=== PATIENT | male | born 1930 | race Caucasian/White ===

== ENCOUNTER 2016-09-30 15:21 | Inpatient (IN) | payer OTHER, MEDICARE ==
[2016-09-30] MEDS ORDERED: NS 500 ML IV ONE (15:22)
--- NOTE | 2016-09-30 15:23 | EDPHY ---
H & P HPI/ROS: HPI CHIEF COMPLAINT: Bradycardia HISTORY OF PRESENT ILLNESS: This patient very pleasant 78-year-old male significant past medical history for coronary artery disease and hypertension, hyperlipidemia, myasthenia gravis, with dysphagia and has a PEG tube, history of AFib on Coumadin, he presents to the emergency room after he was seen in cardiology clinic up stairs by Dr. Ricci and found to be bradycardic in the 30s to 40s. The patient does complain of fatigue, and intermittent generalized weakness. He has never had a syncopal episode he denies chest pain or shortness of breath. Does get dyspnea on exertion with great exertion. He presents emergency room from up stairs in cardiology clinic asymptomatic, he denies any chest pain, denies any shortness of breath. It is noted his heart rates in the 30s to 40s. Patient went for routine follow-up appointment with Cardiology. Dr. Ricci tells me his HR usually runs in the 50s. It is noted this patient is on metoprolol 12.5 mg twice daily. Past Medical History: Coronary artery disease with 3 stents, hypertension, hyperlipidemia, myasthenia gravis with dysphagia, requiring PEG tube, history of diabetes, AFib Past Surgical History: PEG tube Social History: Denies daily use of drugs alcohol tobacco products Family History: Noncontributory ROS REVIEW OF SYSTEMS: A comprehensive 10 point review of systems is otherwise negative aside from elements mentioned in the history of present illness. Exam Constitutional appears well nontoxic, triage nursing summary reviewed, vital signs reviewed, awake/alert. Eyes normal conjunctivae and sclera, EOMI, PERRLA. HENT normal inspection, atraumatic, moist mucus membranes, no epistaxis, neck supple/ no meningismus, no raccoon eyes. Respiratory clear to auscultation bilaterally, normal breath sounds, no respiratory distress, no wheezing. Cardiovascular bradycardia, regular rhythm, no murmur, no edema, distal pulses normal. Gastrointestinal soft, non-tender, no rebound, no guarding, normal bowel sounds, no distension, no pulsatile mass. Genitourinary no CVA tenderness. Musculoskeletal no midline vertebral tenderness, full range of motion, no calf swelling, no tenderness of extremities, no meningismus, good pulses, neurovascularly intact. Skin pink, warm, & dry, no rash, skin atraumatic. Neurologic awake, alert and oriented x 3, AAOx3, moves all 4 extremities equally, motor intact, sensory intact, CN II-XII intact, normal cerebellar, normal vision, normal speech. Psychiatric normal mood/affect. Heme/Lymph/Immune no lymphadenopathy. Differential Diagnosis: Includes but is not limited to in a particular order, symptomatic bradycardia, dehydration, electrolyte disturbance, bradycardia induced by beta-lolita, underlying cardiac conduction delay with bradycardia Medical Decision Making: Plan for this patient full threat monitoring analyst, EKG, IV establishment, IV fluid bolus, check electrolytes, check troponin, chest x-ray one view. Patient need to be admitted to the hospital overt [facility]. Patient need to be admitted for bradycardia. Will need pacemaker. No indication for emergent pacing at this time no indication for transcutaneous pacing or transvenous pacing here in the emergency room. Patient asymptomatic. Without any complaints. Re-evaluation: EKG interpretation by me on record in My [employer] system. Impression time of EKG , this is AFib rate of 47. No acute ischemic changes. I do not appreciate P waves. 1555: I spoke with the daughter who is unclear if he is actually taking beta- lolita. The daughter thinks that he may not be on metoprolol twice daily 12.5 mg. will need to confirm with his pharmacy. Will hold beta-lolita just in case. 1556: I spoke with Dr. Hernandez who agrees to admit this patient to PCU. Patient be transferred over to [facility] inpatient. Patient agrees for transfer. Patient be transferred by ambulance transport due to bradycardia. Source: Patient, Family - Medical/Surgical History Hx Asthma: Yes Hx Chronic Respiratory Disease: Yes Hx Diabetes: Yes Hx Cardiac Disease: Yes Hx Renal Disease: Yes Hx Cirrhosis: No Hx Alcoholism: No Hx HIV/AIDS: No Hx Splenectomy or Spleen Trauma: No Other PMH: HYPOTHYROIDISM, HYPERTENSION, HYPERCHOLESTREMIA. DIABETES TYPE 2 resolved after quit ETOH. 3 STENTS. dysphagia . peg tube - Social History Smoking Status: Never smoked Constitutional: Initial Vital Signs Temperature (C) 36.6 C 09/30/16 15:26 Heart Rate 46 L 09/30/16 15:26 Respiratory Rate 16 09/30/16 15:26 Blood Pressure 116/80 09/30/16 15:26 O2 Sat (%) 96 09/30/16 15:26 O2 Delivery Mode Room Air Allergies/Adverse Reactions: No Allergies Allergy (Unknown, Verified 09/30/16 15:31) Home Medications: Medication Instructions Recorded Albuterol Sulfate [Proair Hfa] 1 - 2 gm IH Q4-6PRN PRN 09/30/16 Cyanocobalamin [Vitamin B12 (*)] 1,000 mcg PO DAILY 09/30/16 Famotidine [Pepcid 20 MG (*)] 20 mg PO BID 09/30/16 Ferrous Sulfate [Ferrous Sulf 325 325 mg PO BID 09/30/16 MG (*)] Fluticasone Nasal [Flonase Nasal 1 sprays NASAL DAILY PRN 09/30/16 [place] (RX)] Fluticasone/Salmeter 250/50Mcg 1 puffs IH BID 09/30/16 [Advair 250/50 (*)] Ipratropium [Atrovent Hfa (*)] 1 puffs IH DAILY 09/30/16 Levothyroxine Sodium 100 mcg PO DAILY 09/30/16 [Levothyroxine Sodium] Memantine HCl [Memantine HCl] 10 mg PO BID 09/30/16 Mirtazapine [Remeron] 15 mg PO HS 09/30/16 Pyridostigmine Roscoe 60 mg PO QID 09/30/16 [Pyridostigmine [place]] Simvastatin 10 mg PO HS 09/30/16 Warfarin Sodium [Coumadin 5MG (*)] 7.5 mg PO DAILY 09/30/16 guaiFENesin [Guaifenesin] 400 mg PO BID PRN 09/30/16 Medical Decision Making - Data Points Laboratory Results: Laboratory Results 09/30/16 15:28 09/30/16 15:28 Medications Given: Discontinued Medications Bacitracin (Bacitracin 1000 Ml Irrigation) 50,000 units IRR ONCALL ONE Stop: 10/01/16 07:47 Last Admin: 10/01/16 17:44 Dose: Not Given Diazepam (Valium) 5 mg PO ONCALL ONE Stop: 10/01/16 07:47 Last Admin: 10/01/16 17:44 Dose: Not Given Diphenhydramine HCl (Benadryl) 25 mg PO ONCALL ONE Stop: 10/01/16 07:47 Last Admin: 10/01/16 17:44 Dose: Not Given Furosemide (Lasix Injection) 40 mg IVP ONCE ONE Stop: 10/02/16 09:55 Last Admin: 10/02/16 11:26 Dose: 40 mg Sodium Chloride (Ns) 500 mls @ 1,000 mls/hr IV ONCE ONE PRN Reason: Protocol Stop: 09/30/16 15:51 Last Admin: 09/30/16 15:40 Dose: 500 mls Sodium Chloride (Ns) 1,000 mls @ 50 mls/hr IV CONT LISBETH Stop: 03/29/17 20:59 Last Admin: 10/01/16 18:13 Dose: 1,000 mls Cefazolin Sodium/Dextrose (Ancef 2 Gm (Premix)) 100 mls @ 200 mls/hr IV ONCALL ONE PRN Reason: Protocol Stop: 10/01/16 08:15 Last Admin: 10/01/16 17:44 Dose: Not Given Cefazolin Sodium/Dextrose (Ancef 1 Gm (Premix)) 50 mls @ 200 mls/hr IV Q8HRS LISBETH PRN Reason: Protocol Stop: 10/02/16 06:14 Last Admin: 10/02/16 05:01 Dose: 50 mls Mirtazapine (Remeron) 15 mg PO HS LISBETH Stop: 03/29/17 20:59 Last Admin: 09/30/16 21:37 Dose: Not Given Pravastatin Sodium (Pravachol) 20 mg PO HS LISBETH Stop: 03/29/17 20:59 Last Admin: 09/30/16 21:37 Dose: Not Given Pyridostigmine Roscoe (Mestinon) 60 mg PO QID LISBETH Stop: 03/29/17 20:59 Last Admin: 09/30/16 21:54 Dose: Not Given Departure - Departure Disposition: [facility] Acute Clinical Impression: Symptomatic bradycardia Condition: Fair
--- NOTE | 2016-09-30 15:32 | CPEKG ---
Heart Rate: 47 RR Interval: 1277 QRSD Interval: 94 QT Interval: 500 QTC Interval: 442 QRS Williamson: -29 T Wave Williamson: 26 EKG Severity - ABNORMAL ECG - EKG Impression: ATRIAL FIBRILLATION EKG Impression: BORDERLINE LEFT AXIS DEVIATION Electronically Signed By: Yuval Zamora 01-Oct-2016 16:52:54
[2016-09-30 15:36] LABS: % IMMATURE GRANULYOCYTES 0.7 % (0.0-1.1); ABSOLUTE IMMATURE GRANULOCYTES 0.02 10^3/uL (0.00-0.10); ADD DIFF? NO; ADD MORPH? NO; ADD SCAN? NO; ATYPICAL LYMPHOCYTE FLAG 0 (0-99); FRAGMENT RBC FLAG 0 (0-99); HEMATOCRIT 40.7 % (40.0-51.0); LEFT SHIFT FLG 0 (0-99); LIPEMIA HEMOLYSIS FLAG 80 (0-99); MEAN CELL HEMOGLOBIN 29.5 pg (27.9-34.1); MEAN CELL HEMOGLOBIN CONCENTR. 31.9 g/dL (32.4-36.7); MEAN CELL VOLUME 92.3 fL (81.5-99.8); MEAN PLATELET VOLUME 12.4 fL (8.7-11.7); PLATELET CLUMPS FLAG 10 (0-99); PLATELET COUNT 86 10^3/uL (150-400); RED BLOOD CELL COUNT 4.41 10^6/uL (4.40-6.38); RED CELL DISTRIBUTION WIDTH 14.6 % (11.5-15.2)
[2016-09-30 15:49] LABS: INR 2.05 (0.83-1.16); PROTIME(PATIENT) 22.9 SEC (12.0-15.0)
[2016-09-30 15:50] LABS: APTT 37.3 SEC (23.0-38.0)
[2016-09-30 15:53] LABS: ANION GAP 9 mEq/L (8-16); CALCIUM 8.8 mg/dL (8.5-10.4); CARBON DIOXIDE 27 mEq/l (22-31); CHLORIDE 108 mEq/L (97-110); CREATININE 0.9 mg/dL (0.7-1.3); GLOMERULAR FILTRATION RATE > 60; GLUCOSE 100 mg/dL (70-100); MAGNESIUM 2.2 mg/dL (1.6-2.3); POTASSIUM 4.3 mEq/L (3.5-5.2); SODIUM 144 mEq/L (134-144)
[2016-09-30 16:07] LABS: CREATINE KINASE-MB FRACTION 2.98 ng/mL (0-4.55); TROPONIN I < 0.012 ng/mL (0-0.034)
--- NOTE | 2016-09-30 17:28 | PDGENHP ---
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 He has complained of fatigue and weakness over past several days. Denies CP, SOB, dizziness, or syncope. No fevers/chills or respiratory symptoms. He has no complaints upon arrival to the floor, stating "I'm here to get a pacemaker". The ED physician reported that his daughter stated he may still be taking Metoprolol and we're trying to get this clarified. He is admitted to the PCU for further management. History Information - Allergies/Home Medication List Allergies/Adverse Reactions: No Allergies Allergy (Unknown, Verified 09/30/16 15:31) Home Medications: Albuterol Sulfate [Proair Hfa] 1 - 2 gm IH Q4-6PRN PRN 09/30/16 [Last Taken ] Cyanocobalamin [Vitamin B12 (*)] 1,000 mcg PO DAILY 09/30/16 [Last Taken ] Famotidine [Pepcid 20 MG (*)] 20 mg PO BID 09/30/16 [Last Taken 09/29/16] Ferrous Sulfate [Ferrous Sulf 325 MG (*)] 325 mg PO BID 09/30/16 [Last Taken ] Fluticasone Nasal [Flonase Nasal [place] (RX)] 1 sprays NASAL DAILY PRN 09/30/16 [ Last Taken 09/29/16] Fluticasone/Salmeter 250/50Mcg [Advair 250/50 (*)] 1 puffs IH BID 09/30/16 [ Last Taken 09/29/16] Ipratropium [Atrovent Hfa (*)] 1 puffs IH DAILY 09/30/16 [Last Taken 09/29/16] Levothyroxine Sodium [Levothyroxine Sodium] 100 mcg PO DAILY 09/30/16 [Last Taken 09/29/16] Memantine HCl [Memantine HCl] 10 mg PO BID 09/30/16 [Last Taken 09/29/16] Mirtazapine [Remeron] 15 mg PO HS 09/30/16 [Last Taken 09/29/16] Pyridostigmine [place] [Pyridostigmine [place]] 60 mg PO QID 09/30/16 [Last Taken 09/29/16] Simvastatin 10 mg PO HS 09/30/16 [Last Taken 09/29/16] Warfarin Sodium [Coumadin 5MG (*)] 7.5 mg PO DAILY 09/30/16 [Last Taken 09/29/16 ] guaiFENesin [Guaifenesin] 400 mg PO BID PRN 09/30/16 [Last Taken 09/29/16] I have personally reviewed and updated: family history, medical history, social history, surgical history - Past Medical History coronary artery disease, hypertension, hyperlipidemia Additional medical history: h/o coronary stents, last LAD in 2013, dementia, DM type 2, atrial fibrillation, chronic anti-coagulation, h/o upper GIB due to gastric AVM's 09/2015, myasthenia gravis, peg tube - Surgical History Reports: appendectomy, coronary stent Additional surgical history: Peg tube 2013, inguinal hernia repair 2013 - Family History Additional family history: daughter with MS, sibling from alcoholism, mother with brain cancer, father with black lung - Social History Smoking Status: Never smoked Alcohol Use: None Drug Use: None Additional social history: Lives independently with . Daughter helps. Review of Systems ROS: 10pt was reviewed & negative except for what was stated in HPI & below Physical Exam Temp Pulse Resp BP Pulse Ox 36.6 C 46 L 16 116/80 98 09/30/16 15:26 09/30/16 15:26 09/30/16 15:26 09/30/16 15:26 09/30/16 16:08 O2 (L/minute) 1 Constitutional: no apparent distress Eyes: PERRL Ears, Nose, Mouth, Throat: moist mucous membranes Cardiovascular: regular rate and rhythym Respiratory: no respiratory distress, clear to auscultation Gastrointestinal: normoactive bowel sounds, soft, non-tender abdomen Skin: warm Musculoskeletal: full muscle strength Psychiatric: poor memory Lab Data & Imaging Review 09/30/16 15:28 09/30/16 15:28 WBC 2.71 10^3/uL (3.80-9.50) L 09/30/16 15:28 RBC 4.41 10^6/uL (4.40-6.38) 09/30/16 15:28 Hgb 13.0 g/dL (13.7-17.5) L 09/30/16 Hct 40.7 % (40.0-51.0) 09/30/16 MCV 92.3 fL (81.5-99.8) 09/30/16 MCH 29.5 pg (27.9-34.1) 09/30/16 MCHC 31.9 g/dL (32.4-36.7) L 09/30/16 RDW 14.6 % (11.5-15.2) 09/30/16 Plt Count 86 10^3/uL (150-400) L 09/30/16 MPV 12.4 fL (8.7-11.7) H 09/30/16 Neut % (Auto) 63.6 % (39.3-74.2) 09/30/16 Lymph % (Auto) 21.4 % (15.0-45.0) 09/30/16: Ralls % (Auto) 10.3 % (4.5-13.0) 09/30/16: Eos % (Auto) 3.3 % (0.6-7.6) 09/30/16 Baso % (Auto) 0.7 % (0.3-1.7) 09/30/16 Nucleat RBC Rel Count 0.0 % (0.0-0.2) 09/30/16 Absolute Neuts (auto) 1.72 10^3/uL (1.70-6.50) 09/30/16 Absolute Lymphs (auto) 0.58 10^3/uL (1.00-3.00) L 09/30/16: Absolute Monos (auto) 0.28 10^3/uL (0.30-0.80) L 09/30/16: Absolute Eos (auto) 0.09 10^3/uL (0.03-0.40) 09/30/16 Absolute Basos (auto) 0.02 10^3/uL (0.02-0.10) 09/30/16 Absolute Nucleated RBC 0.00 10^3/uL (0-0.01) 09/30/16 15: Immature Gran % 0.7 % (0.0-1.1) 09/30/16 Immature Gran # 0.02 10^3/uL (0.00-0.10) 09/30/16: PT 22.9 SEC (12.0-15.0) H 09/30/16: INR 2.05 (0.83-1.16) H 09/30/16: APTT 37.3 SEC (23.0-38.0) 09/30/16: Sodium 144 mEq/L (134-144) 09/30/16 Potassium 4.3 mEq/L (3.5-5.2) 09/30/16 Chloride 108 mEq/L (97-110) 09/30/16 Carbon Dioxide 27 mEq/l (22-31) 09/30/16 Anion Gap 9 mEq/L (8-16) 09/30/16: BUN 35 mg/dL (7-23) H 09/30/16: Creatinine 0.9 mg/dL (0.7-1.3) 09/30/16 Estimated GFR > 60 09/30/16 Glucose 100 mg/dL (70-100) 09/30/16 Calcium 8.8 mg/dL (8.5-10.4) 09/30/16 Magnesium 2.2 mg/dL (1.6-2.3) 09/30/16: Creatine Kinase 93 IU/L (0-224) 09/30/16 CK-MB (CK-2) Fraction 2.98 ng/mL (0-4.55) 09/30/16 Troponin I < 0.012 ng/mL (0-0.034) 09/30/16: NT-Pro-B Natriuret Pep 2800 pg/mL (0-450) H 09/30/16 15: Visualized and Interpreted Chest x-ray results: Yes Chest X-Ray results: no infiltrate, other (bibasilar scarring, mild cardiomegaly ) Visualized and Interpreted EKG results: Yes EKG additional interpertation: A fib, HR 47, no ST segment of T wave changes suggestive of acute ischemia Assessment & Plan Assessment: Bradycardia - in setting of A fib. He is mildly symptomatic with fatigue and weakness. His daughter apparently reported to the ED physician that he had been taking Metoprolol, this is not his med list per [place] review. I phoned the daughter to clarify this and left a message. If he is indeed still taking Metoprolol, then we'll hold this obviously and see if the bradycardia resolves. Otherwise, will need pacemaker per Cards. -Pacer pads on -NPO after midnight -hold Coumadin (INR 2.05 on admission) -PRN Atropine if he becomes symptomatic with SOB, CP, mentation changes, etc -Cards aware of pt, discussed with Dr. Manuela HONEYCUTT s/p stent, last had LAD in 2013. He is chest pain free. -Cont outpt meds Atrial fibrillation - EKG shows slow A fib on arrival. He is anticoagulated on Coumadin, INR 2. -Pacemaker as above, holding coumadin for now -Recheck INR in am Hypertension - fair control, cont outpt meds Hyperlipidemia - cont statin Myasthenia gravis - stable, cont outpt meds. He has a peg tube due to dysphagia. Will keep NPO, meds per tube, dietary consult to assist with getting tube feeds ordered. Pt does not know what he uses. Pancytopenia - mild, chronic over the past few months. Monitor, consider outpt hematology referral. Dementia - cont outpt meds Code status - full code by default. He is unable to have a meaningful conversation about his code status. Unable to reach daughter. Please address in am. Dispo - inpt, will likely require >48 hrs hospitalization for possible pacemaker placement and further management of his bradycardia
[2016-09-30] MEDS ORDERED: ONDANSETRON 4 MG/2 ML VIAL IVP PRN (17:59)
[2016-09-30] MEDS ORDERED: ONDANSETRON DISINTEGRATING 4 MG TAB PO PRN (17:59)
[2016-09-30] MEDS ORDERED: ACETAMINOPHEN 325 MG TAB PO PRN (17:59)
[2016-09-30] MEDS ORDERED: FLUTICASONE NASAL 120 SPRAYS/16 GM MDI EACHNARE PRN (19:20)
[2016-09-30] MEDS ORDERED: GUAIFENESIN 400 MG PO PRN (19:20)
[2016-09-30] MEDS ORDERED: guaiFENesin 200 MG TAB PO PRN (19:25)
[2016-09-30] MEDS: FLUTICASONE/SALMETER 250/50MCG DISKUS IH SCH (20:47)
[2016-09-30] MEDS ORDERED: guaiFENesin 200 MG/10 ML UDL PO PRN (20:57)
[2016-09-30] MEDS ORDERED: NON-FORMULARY NEW DRUG (Simvastatin [Simvastatin] 10 MG) PO SCH (21:00)
[2016-09-30] MEDS ORDERED: FAMOTIDINE 20 MG TAB PO SCH (21:00)
[2016-09-30] MEDS ORDERED: NON-FORMULARY NEW DRUG (Mirtazapine [Remeron] 15 MG) PO SCH (21:00)
[2016-09-30] MEDS ORDERED: NON-FORMULARY NEW DRUG (Memantine Hcl [Memantine Hcl] 10 MG) PO SCH (21:00)
[2016-09-30] MEDS ORDERED: MEMANTINE HCL 5 MG TAB PO SCH (21:00)
[2016-09-30] MEDS ORDERED: FERROUS SULFATE 325 MG TAB PO SCH (21:00)
[2016-09-30] MEDS ORDERED: MIRTAZAPINE 15 MG TAB PO SCH (21:00)
[2016-09-30] MEDS ORDERED: PYRIDOSTIGMINE BROMIDE 60 MG TAB PO SCH (21:00)
[2016-09-30] MEDS ORDERED: NS 1,000 ML IV SCH (21:00)
[2016-09-30] MEDS ORDERED: PRAVASTATIN SODIUM 20 MG TAB PO SCH (21:00)
[2016-09-30] MEDS ORDERED: ONDANSETRON DISINTEGRATING 4 MG TAB TUBE PRN (21:04)
[2016-09-30] MEDS: PYRIDOSTIGMINE BROMIDE 60 MG TAB TUBE SCH (21:35)
[2016-09-30] MEDS: MEMANTINE HCL 5 MG TAB TUBE SCH (21:35)
[2016-09-30] MEDS: FAMOTIDINE 20 MG TAB TUBE SCH (21:36)
[2016-09-30] MEDS: FERROUS SULFATE 300 MG/5 ML UD CUP TUBE SCH (21:36)
[2016-09-30] MEDS: MIRTAZAPINE 15 MG TAB TUBE SCH (21:44)
[2016-09-30] MEDS: PRAVASTATIN SODIUM 20 MG TAB TUBE SCH (21:44)
[2016-10-01 04:26] LABS: HEMATOCRIT 37.3 % (40.0-51.0); HEMOGLOBIN 11.9 g/dL (13.7-17.5); MEAN CELL HEMOGLOBIN 29.4 pg (27.9-34.1); MEAN CELL HEMOGLOBIN CONCENTR. 31.9 g/dL (32.4-36.7); MEAN CELL VOLUME 92.1 fL (81.5-99.8); RED BLOOD CELL COUNT 4.05 10^6/uL (4.40-6.38); RED CELL DISTRIBUTION WIDTH 14.4 % (11.5-15.2)
[2016-10-01 04:38] LABS: INR 2.16 (0.83-1.16); PROTIME(PATIENT) 24.3 SEC (12.0-15.0)
[2016-10-01] MEDS: PYRIDOSTIGMINE BROMIDE 60 MG TAB TUBE SCH ×3 (06:02→20:26)
[2016-10-01] MEDS: LEVOTHYROXINE 100 MCG TAB TUBE SCH (06:02)
[2016-10-01] MEDS ORDERED: diphenhydrAMINE 25 MG CAP PO ONE (07:46)
[2016-10-01] MEDS ORDERED: ceFAZolin 2 GM/DEXTROSE 100 ML IV ONE (07:46)
[2016-10-01] MEDS ORDERED: DIAZEPAM 5 MG TAB PO ONE (07:46)
[2016-10-01] MEDS ORDERED: BACITRACIN IRRIGATION/NS 50,000 UNITS/1,000 ML BTL IRR ONE (07:46)
[2016-10-01] MEDS: IPRATROPIUM HFA INHALER IH SCH (08:54)
[2016-10-01] MEDS: FLUTICASONE/SALMETER 250/50MCG DISKUS IH SCH ×2 (08:54→20:29)
[2016-10-01] MEDS: FAMOTIDINE 20 MG TAB TUBE SCH ×2 (09:45→20:26)
[2016-10-01] MEDS: FERROUS SULFATE 300 MG/5 ML UD CUP TUBE SCH ×2 (09:46→20:25)
[2016-10-01] MEDS: MEMANTINE HCL 5 MG TAB TUBE SCH ×2 (09:47→20:26)
[2016-10-01] MEDS ORDERED: MIDAZOLAM 2 MG/2 ML VIAL ONE ×2 (13:57→13:58)
[2016-10-01] MEDS ORDERED: fentaNYL 100 MCG/2 ML INJ ONE (13:57)
[2016-10-01] MEDS ORDERED: LIDOCAINE 1% 300 MG/30 ML SDV ONE (13:57)
[2016-10-01] MEDS ORDERED: BUPIVACAINE 0.5% 30 ML SDV ONE (13:58)
[2016-10-01] MEDS ORDERED: LIDO/EPI 1% **for epidural** 30 ML SDV ONE (13:59)
[2016-10-01] MEDS ORDERED: ETOMIDATE 40 MG/20 ML INJ ONE ×3 (14:51→16:38)
--- NOTE | 2016-10-01 15:32 | HOSPPROG ---
Hospitalist Progress Note Assessment/Plan: * Afib with SSS - symptomatic bradycardia -to PCM maker today -confirmed by cardiology that he is not currently on metoprolol -elevated INR - FFP per cardiology * MG with chronic PEG -Mestinon -tube feeds * CAD/stent * Pancytopenia -check TSH, B12 -outpatient hematology -watch platelets with procedure * Dementia Subjective: No new complaints. Objective: Vital Signs Temp Pulse Resp BP Pulse Ox 36.4 C 59 L 16 158/76 H 93 10/01/16 11:39 10/01/16 11:39 10/01/16 11:39 10/01/16 11:39 10/01/16 11:39 Laboratory Results 10/01/16 03:26 09/30/16 10/01/16 10/02/16 05:59 05:59 05:59 Intake Total 1000 Output Total 700 Balance 300 PT 24.3 SEC (12.0-15.0) H 10/01/16 03:26 INR 2.16 (0.83-1.16) H 10/01/16 03:26 EKG viewed, my personal interpretation is - slow afib CXR negative d/w cardiology Sabino Melyssa [employer] CHECKOUT CLERK - PCM today, they confirmed no metoprolol - Physical Exam Constitutional: no apparent distress, appears nourished, not in pain Cardiovascular: regular rate and rhythym, no murmur, rub, or gallop Respiratory: no respiratory distress, no rales or rhonchi, clear to auscultation Gastrointestinal: normoactive bowel sounds, soft, non-tender abdomen, no palpable masses Skin: no rashes or abrasions, no fluctuance, no induration Neurologic: sensation intact bilaterally Psychiatric: interacting appropriately, not anxious, not encephalopathic, thought process linear ICD10 Worksheet Patient Problems: Problems Problem Status Onset Symptomatic bradycardia Acute A-fib Acute Hematoma of neck Acute
--- NOTE | 2016-10-01 16:50 | CPEKG ---
Heart Rate: 138 RR Interval: 435 P-R Interval: 44 QRSD Interval: 222 QT Interval: 424 QTC Interval: 643 P Morris: 0 QRS Morris: 47 T Wave Morris: 39 EKG Severity - ABNORMAL ECG - EKG Impression: VENTRICULAR-PACED COMPLEXES Electronically Signed By: Yuval Zamora 04-Oct-2016 09:05:28
[2016-10-01] MEDS: DEXMEDETOMIDINE HCL 400 MCG in NS 100 ML IV SCH ×2 (17:22→20:58)
--- NOTE | 2016-10-01 17:37 | CPIP ---
[f rep st] INVASIVE CARDIAC PROCEDURE DATE OF PROCEDURE: 10/01/2016 PROCEDURE PERFORMED: Single-chamber pacemaker insertion. The device is a model #Eluna 8 SRT ProMRI, serial #[id number]; the lead is a Biotronik Solia S53, marygonzález al #[id number]. INDICATIONS/APPROPRIATE USE CRITERIA: The patient presents with fatigue and near-syncope, which has been ongoing for several weeks. He has not taken a heart rhythm slowing medication for over a year , presented to the emergency department with those complaints and was documented to have heart rates as slow as 27 beats per minute with evidence of regularized atrial fibrillation, which is known to be permanent. INDICATION FOR THE PROCEDURE: Sick sinus syndrome, sinus arrest and pauses of up to 2 seconds, whic h is symptomatic in a patient with permanent atrial fibrillation and chronotropic incompetence. COMPLICATIONS: None. PROCEDURE IN DETAIL: After informed consent was obtained, n.p.o. status was confirmed, the patient was taken to the cardiac catheterization laboratory and the region of the left subclavicular fossa w as cleaned, prepped and draped in sterile fashion. Approximately 15 cc of 1% lidocaine were realize d for local anesthesia. A #10 blade was used to sharply incise the skin. Electrocautery and local p ressure were used for hemostasis. Sharp and blunt dissection was used to form a pacer pocket overly ing the pectoralis major fascia. An 18-gauge Cook needle was used to gain access to the left subcla vian vein with the patient in Trendelenburg position. The position was then reversed once access wa s obtained, and a J-wire was advanced and sheath placed. The J-wire and dilator were removed. Vent ricular lead was moved today with care to the RV apex, sutured into place in the lower interventricu lar septum. It was tested and found to have a threshold of 0.8 at 0.4. R-wave amplitude was measur ed at 6.8, with a nice current of injury. Lead impedance was 656 ohms. The lead was sutured in kody ce with 0 Ethibond. The pocket was thoroughly flushed and checked for bleeders. Antibiotic-soaked gauze was removed from the pocket. Copious amounts of antibiotic solution were used to irrigate the pocket. Device was brought to the table and the lead was placed at the end of the upper pole to the lead housing and the set screw was firmly applied documenting pacing at the backup rate of 60 beats per minute. The device was set in VVI CLS mode with a lower rate limit of 60. The device was sutu red in place with 0 silk and the cutaneous layer was closed with a 3-layered 2-0 and 3-0 Vicryl sutu re followed by a 4-0 Stratafix suture. IMPRESSION: Successful single-chamber pacemaker placement for symptomatic sick sinus syndrome, sinu s arrest and pauses with bradycardia, and regularization of atrial fibrillation consistent with high -grade AV block. /[id number]/MODL
[2016-10-01] MEDS: MIRTAZAPINE 15 MG TAB TUBE SCH (20:26)
[2016-10-01] MEDS: ACETAMINOPHEN 325 MG TAB TUBE PRN (20:26)
[2016-10-01] MEDS: PRAVASTATIN SODIUM 20 MG TAB TUBE SCH (20:26)
[2016-10-02 04:26] LABS: % IMMATURE GRANULYOCYTES 0.3 % (0.0-1.1); ABSOLUTE IMMATURE GRANULOCYTES 0.01 10^3/uL (0.00-0.10); ADD DIFF? NO; ADD MORPH? NO; ADD SCAN? NO; ATYPICAL LYMPHOCYTE FLAG 0 (0-99); FRAGMENT RBC FLAG 0 (0-99); HEMATOCRIT 43.1 % (40.0-51.0); HEMOGLOBIN 13.7 g/dL (13.7-17.5); LEFT SHIFT FLG 0 (0-99); LIPEMIA HEMOLYSIS FLAG 80 (0-99); MEAN CELL HEMOGLOBIN 29.3 pg (27.9-34.1); MEAN CELL HEMOGLOBIN CONCENTR. 31.8 g/dL (32.4-36.7); MEAN CELL VOLUME 92.3 fL (81.5-99.8); MEAN PLATELET VOLUME 12.4 fL (8.7-11.7); PLATELET CLUMPS FLAG 0 (0-99); PLATELET COUNT 63 10^3/uL (150-400); RED BLOOD CELL COUNT 4.67 10^6/uL (4.40-6.38)
[2016-10-02 04:38] LABS: INR 1.76 (0.83-1.16); PROTIME(PATIENT) 20.6 SEC (12.0-15.0)
[2016-10-02 04:51] LABS: ANION GAP 6 mEq/L (8-16); CALCIUM 8.5 mg/dL (8.5-10.4); CARBON DIOXIDE 22 mEq/l (22-31); CHLORIDE 112 mEq/L (97-110); CREATININE 0.7 mg/dL (0.7-1.3); GLOMERULAR FILTRATION RATE > 60; GLUCOSE 137 mg/dL (70-100); POTASSIUM 3.6 mEq/L (3.5-5.2); SODIUM 140 mEq/L (134-144)
[2016-10-02] MEDS: LEVOTHYROXINE 100 MCG TAB TUBE SCH (05:01)
[2016-10-02] MEDS: PYRIDOSTIGMINE BROMIDE 60 MG TAB TUBE SCH ×4 (05:01→20:27)
[2016-10-02] MEDS: DEXMEDETOMIDINE HCL 400 MCG in NS 100 ML IV SCH ×3 (05:01→17:07)
[2016-10-02] MEDS: IPRATROPIUM HFA INHALER IH SCH (08:30)
[2016-10-02] MEDS: FLUTICASONE/SALMETER 250/50MCG DISKUS IH SCH ×2 (08:31→20:27)
[2016-10-02] MEDS ORDERED: FUROSEMIDE 40 MG/4 ML VIAL IVP ONE (09:54)
--- NOTE | 2016-10-02 11:21 | POSTOPPROG ---
Post Op Note Date of Operation: 10/02/16 Surgeon: Hong Whelan Pipe Production Worker: None Anesthesiologist: None Pre-op Diagnosis: Feeding difficulty with need for G-Tube change. Post-op Diagnosis: 1. Same. 2. Placement of 20 Fr G-tube at bedside. Indication: Feeding difficulty, G-Tube removed by patient. Procedure: 20 Fr CONOR-Bolus G-Tube feeding tube placed at beside without difficulty. Findings: None. Inf/Abcess present in the surg proc area at time of surgery?: No EBL: None Total fluids administered: None Complications: None. Drains: Other (None.)
[2016-10-02] MEDS: FAMOTIDINE 20 MG TAB TUBE SCH ×2 (11:31→20:27)
--- NOTE | 2016-10-02 11:56 | PDCARPN ---
Cardiology Progress Note Chief Complaint: SSS. Bradycardia. A- Fib Assessment/Plan: Assessment: SSS/Bradycardia/Sinus arrest pauses up to 2 seconds: Seen in clinic with HR 28. To ER for PPM by Bird Cobb MD 10/01/16. Indication for PPM as above. Symptomatic. Placed L SC site. He was not on any meds to lower HR. He was in Permanent A Fib. Regularization of A Fib post implant consistent with high A-V Block. Device check this morning with normal function. Tele shows Paced rhythm. - 61. BP good today 128/60. Pacer site intact with dressing in place. Petrolia size area of serosanguineous fluid. No bleeding, or ecchymosis at site. Mild swelling. 1 view portable CXR ordered for today. Has not been done at this time. Dementia: Post procedure confused. To ICU for monitoring. He is sedated with Precedex drip. Will call out. Responded to commands. Confusion / Dementia monitored and managed by Hospitalist. Plan: Continue monitoring on Telemetry while hospitalized. 10/02/16 11:56 10/02/16 12:35 Subjective: Sedated. Does respond to commands. calls out one word. Reviewed/Discussed With: multidisciplinary team (ICU Nurses), other (Dr Linton and Dr Alberts) Time Spent With Patient: 15 minutes Objective: Vital Signs (8 Hrs) Temp Pulse Resp BP Pulse Ox 10/02/16 10:00 61 16 128/60 H 93 10/02/16 08:00 36.6 C 64 19 141/86 H 93 10/02/16 07:00 36.0 C 10/02/16 06:00 34.4 C L 61 13 130/75 H 94 10/02/16 04:30 34.6 C L 10/02/16 04:00 61 12 140/92 H 93 Intake/Output (24 Hrs) 10/01/16 10/02/16 10/03/16 05:59 05:59 05:59 Intake Total 1000 878 Output Total 700 1100 Balance 300 -222 Intake: Oral (ml) 0 IV Intake (ml) 500 IV Infused (ml) 500 758 Dexmedetomidine HCl 400 209 mcg In Ns 100 ml @ Per Protocol IV CONT LISBETH Rx#: [id number] Ns 1,000 ml @ 50 mls/hr 549 IV CONT LISBETH Rx#: [id number] Tube Flush (ml) 120 Output: Urine (ml) 700 1100 Catheter 1100 Urinal 700 Other: Weight 86.727 kg Output Comment Catheter Straight Cath Number of Voids 1 Urinal 1 Number of Stools Catheter 0 Bladder Scan Volume (ml) Catheter 350 Result Diagrams: 10/02/16 04:15 10/02/16 04:15 Telemetry: Paced Rhythm w/ rate 61. - Physical Exam Constitutional: other (sedated) Cardiovascular: regular rate and rhythm, No no murmurs, No no rubs Respiratory: reduced air movement, No no crackles, No no wheezes Skin: warm, no edema Neurologic: other (sedated) Psychiatric: following commands ICD10 Worksheet Patient Problems: Problems Problem Status Onset Symptomatic bradycardia Acute A-fib Acute Hematoma of neck Acute
--- NOTE | 2016-10-02 13:44 | GCON ---
[f rep st] CONSULTATION PULMONARY CRITICAL CARE CONSULT. DATE OF CONSULTATION: 10/02/2016 HISTORY OF PRESENT ILLNESS: The patient is an 86-year-old male with a history of coronary artery di sease, atrial fibrillation, and myasthenia gravis, treated with Mestinon, who presented to the emerg ency department with bradycardia in the 30s, on routine followup in Cardiology. He did complain of weakness and fatigue over the preceding several days and a pacemaker was placed without incident. Mike bain was actually planning to go home, but had some confusion after the initial procedure, and anais vanessa is permanent PEG out. He was monitored in the ICU overnight, and a PEG was replaced by GI earlier t abbi. He otherwise was able to remain calm, with his history of dementia, on a Precedex drip. In a ddition, he has had urinary retention and has required intermittent straight catheterizations, and L asix was added today. PAST MEDICAL HISTORY: Includes coronary artery disease, hypertension, hyperlipidemia, dementia, bri betes, atrial fibrillation, remote upper GI bleeding, myasthenia gravis, PEG tube. SURGICAL HISTORY: Includes appendectomy and coronary stenting, as well as an inguinal hernia repair , and a PEG tube since 2013. FAMILY HISTORY: Includes multiple sclerosis, brain cancer, black lung disease. SOCIAL HISTORY: He is a nonsmoker. No alcohol or IV drug use. OUTPATIENT MEDICATIONS: Include Advair and albuterol, vitamin B12, Pepcid, iron sulfate, Flonase, Atrovent, Synthroid, , mirtazapine, Mestinon. ALLERGIES: None. PHYSICAL EXAM: VITAL SIGNS: His heart rate was 64 and 100% paced, respirations 19, blood pressure 141/86, oxygen saturation 93% on 3 L. He was mostly oriented, though quite somnolent on the Precede x drip, and did try to answer questions appropriately. HEENT: Pupils were equally round and reacti ve to light. Nonicteric and noninjected. Mucous membranes were dry without erythema or exudate. N OSCAR: Supple without adenopathy or jugular vein distention. HEART: His pacemaker site was clean an d dry without evidence of infection, rate appeared to be regular. LUNGS: Breath sounds were clear to auscultation bilaterally without wheezes, rubs or rales. ABDOMEN: Soft, nontender, nondistended without hepatosplenomegaly. EXTREMITIES: Show no clubbing, cyanosis, or edema. OBJECTIVE DATA: Includes a white count of 3.4, hematocrit of 43, platelets of 63. INR 1.76. Basic metabolic panel essentially normal. ASSESSMENT AND PLAN: 1. Confusion in an elderly male postoperatively. I think this is clear delirium. He seems to be be tter controlled with Precedex drip, though once his PEG has been placed, I would encourage discontin uing the Precedex, and using antipsychotics as needed, hopefully, none, and using redirection as muc h as possible. 2. Symptomatic bradycardia, his pacemaker has been placed. This appears to be well controlled at t his time. 3. Presumably asthma from his outpatient medication list. I would simply continue those medication s until further clarification can be obtained. 4. Urinary retention. I think in the short term, until his mental status improves, a Romero cathete r would be appropriate at this time. /[id number]/MODL
[2016-10-02] MEDS: FERROUS SULFATE 300 MG/5 ML UD CUP TUBE SCH ×2 (14:14→20:27)
[2016-10-02] MEDS: MEMANTINE HCL 5 MG TAB TUBE SCH ×2 (14:14→20:26)
[2016-10-02] MEDS: WARFARIN SODIUM 5 MG TAB PO SCH (14:15)
[2016-10-02] MEDS ORDERED: OLANZapine 2.5 MG TAB PO PRN (15:29)
--- NOTE | 2016-10-02 16:00 | HOSPPROG ---
Hospitalist Progress Note Assessment/Plan: * Afib with SSS - symptomatic bradycardia -s/p PCM -resume warfarin * Metabolic encephalopathy - agitated delirium -IV Precedex gtt -add prn zyprexa -wean off precedex as able * MG with chronic PEG -Mestinon * Dysphagia s/p PEG -pulled out PEG last night - replaced by GI * CAD/stent * Pancytopenia -outpatient hematology -watch platelets with procedure * Dementia Subjective: very agitated still ,getting worse through day Objective: Vital Signs Temp Pulse Resp BP Pulse Ox 36.7 C 61 20 134/67 H 95 10/02/16 14:00 10/02/16 14:00 10/02/16 14:00 10/02/16 14:00 10/02/16 14:00 Laboratory Results 10/02/16 04:15 10/02/16 04:15 10/01/16 10/02/16 10/03/16 05:59 05:59 05:59 Intake Total 1000 878 Output Total 700 1100 Balance 300 -222 PT 20.6 SEC (12.0-15.0) H 10/02/16 04:15 INR 1.76 (0.83-1.16) H 10/02/16 04:15 on IV Precedex drip for agitation - Physical Exam Constitutional: no apparent distress, appears nourished, not in pain Cardiovascular: regular rate and rhythym, no murmur, rub, or gallop Respiratory: no respiratory distress, no rales or rhonchi, clear to auscultation Skin: no rashes or abrasions, no fluctuance, no induration Neurologic: No AAOx3 Psychiatric: encephalopathic, anxious, agitated, poor insight, poor judgement, poor memory, No interacting appropriately ICD10 Worksheet Patient Problems: Problems Problem Status Onset Symptomatic bradycardia Acute A-fib Acute Hematoma of neck Acute
[2016-10-02] MEDS: OLANZapine 2.5 MG TAB PO SCH (20:26)
[2016-10-02] MEDS: PRAVASTATIN SODIUM 20 MG TAB TUBE SCH (20:26)
[2016-10-02] MEDS: MIRTAZAPINE 15 MG TAB TUBE SCH (20:26)
[2016-10-03 04:25] LABS: % IMMATURE GRANULYOCYTES 0.2 % (0.0-1.1); ABSOLUTE IMMATURE GRANULOCYTES 0.01 10^3/uL (0.00-0.10); ADD DIFF? NO; ADD MORPH? NO; ADD SCAN? NO; ATYPICAL LYMPHOCYTE FLAG 0 (0-99); FRAGMENT RBC FLAG 0 (0-99); HEMATOCRIT 41.2 % (40.0-51.0); HEMOGLOBIN 13.4 g/dL (13.7-17.5); LEFT SHIFT FLG 0 (0-99); LIPEMIA HEMOLYSIS FLAG 80 (0-99); MEAN CELL HEMOGLOBIN 29.6 pg (27.9-34.1); MEAN CELL HEMOGLOBIN CONCENTR. 32.5 g/dL (32.4-36.7); MEAN CELL VOLUME 91.2 fL (81.5-99.8); MEAN PLATELET VOLUME 12.9 fL (8.7-11.7); PLATELET CLUMPS FLAG 10 (0-99); PLATELET COUNT 81 10^3/uL (150-400); RED BLOOD CELL COUNT 4.52 10^6/uL (4.40-6.38); RED CELL DISTRIBUTION WIDTH 14.1 % (11.5-15.2)
[2016-10-03 04:31] LABS: INR 2.37 (0.83-1.16); PROTIME(PATIENT) 26.1 SEC (12.0-15.0)
[2016-10-03 04:37] LABS: ANION GAP 6 mEq/L (8-16); CALCIUM 8.9 mg/dL (8.5-10.4); CARBON DIOXIDE 26 mEq/l (22-31); CHLORIDE 110 mEq/L (97-110); GLOMERULAR FILTRATION RATE > 60; GLUCOSE 94 mg/dL (70-100); POTASSIUM 3.6 mEq/L (3.5-5.2); SODIUM 142 mEq/L (134-144)
[2016-10-03] MEDS: LEVOTHYROXINE 100 MCG TAB TUBE SCH (05:00)
[2016-10-03] MEDS: PYRIDOSTIGMINE BROMIDE 60 MG TAB TUBE SCH ×4 (05:00→21:20)
[2016-10-03] MEDS: FLUTICASONE/SALMETER 250/50MCG DISKUS IH SCH ×2 (08:43→21:02)
[2016-10-03] MEDS: IPRATROPIUM HFA INHALER IH SCH (08:44)
[2016-10-03] MEDS: FERROUS SULFATE 300 MG/5 ML UD CUP TUBE SCH ×2 (08:56→21:20)
[2016-10-03] MEDS: FAMOTIDINE 20 MG TAB TUBE SCH ×2 (08:56→21:20)
[2016-10-03] MEDS: WARFARIN SODIUM 5 MG TAB PO SCH (08:57)
[2016-10-03] MEDS: MEMANTINE HCL 5 MG TAB TUBE SCH ×2 (08:57→21:20)
--- NOTE | 2016-10-03 08:59 | SOAPPROG ---
SOAP Progress Note Assessment/Plan: Assessment: 1. Sick sinus syndrome. He presents with profound bradycardia. He is now status post placement of single-chamber pacemaker and doing quite well. No apparent complications with respect to his pacemaker implantation are noted. 2. CAD. This appears to be stable at the present time. 3. Postprocedural confusion. This persists at the present time. It is unclear to me what his baseline mentation is like. Plan: 1. Continue current therapy with warfarin and pravastatin. 2. Dementia/delerium management per hospitalist service. 3. Will sign off for now. Please reconsult if needed. We would like to see him in clinic for wound check and pacemaker clinic enrollment in one week. 10/03/16 08:59 Subjective: The patient was seen and examined. His chart was reviewed. He is typically followed as an outpatient by Dr. Corey [place]. Has a history of CAD with 3 prior stenting procedures, permanent atrial fibrillation and sick sinus syndrome. He was admitted with profound fatigue and bradycardia. He has undergone single-chamber pacemaker implantation via left subclavian approach. He appears to be doing well with respect to his pacemaker implantation. He has had fan procedural confusion which persists. In reviewing telemetry there has been appropriate pacing noted with no indication of pacemaker malfunction. Objective: Vital Signs Temp Pulse Resp BP Pulse Ox 36.7 C 74 25 H 121/62 H 93 10/03/16 04:00 10/03/16 08:48 10/03/16 08:48 10/03/16 08:48 10/03/16 08:48 Laboratory Results 10/03/16 04:00 10/03/16 04:00 10/02/16 10/03/16 10/04/16 05:59 05:59 05:59 Intake Total 878 1771 Output Total 1100 1580 Balance -222 191 PT 26.1 SEC (12.0-15.0) H 10/03/16 04:00 INR 2.37 (0.83-1.16) H 10/03/16 04:00 Physical Exam - Physical Exam General Appearance: no apparent distress, thin Neck: non-tender Respiratory: lungs clear, decreased breath sounds Cardiac/Chest: regular rate, rhythm, No edema, No gallop, No JVD Peripheral Pulses: 2+: carotid (R), carotid (L) ICD10 Worksheet Patient Problems: Problems Problem Status Onset A-fib Acute Hematoma of neck Acute Symptomatic bradycardia Acute
--- NOTE | 2016-10-03 09:31 | PDINTPN ---
Suspender Cutter Progress Note Assessment/Plan: Assessment/plan: 86 M with chronic myasthenia gravis on Mestinon as well as atrial fibrillation admitted after found to have a HR in the 20's on routine followup in Cards clinic. He underwent pacemaker placement without direct complication but had post-procedure delerium and pulled out his chronic PEG. This was replaced by GI yesterday and he was treated briefly with a Precedex drip. * Bradycardia- curently stable post PPM placement. Discussed with cardiology and will followup as outpatient. * Delerium- he is more alert today but tangential and confused. He is off precedex and I suspect will clear more with time. Avoid benzos * asthma- stable on advair, atrovent Subjective: confused. denies sob, cp Objective: Vital Signs Temp Pulse Resp BP Pulse Ox 36.7 C 74 25 H 121/62 H 93 10/03/16 04:00 10/03/16 08:48 10/03/16 08:48 10/03/16 08:48 10/03/16 08:48 Laboratory Results 10/03/16 04:00 10/03/16 04:00 10/02/16 10/03/16 10/04/16 05:59 05:59 05:59 Intake Total 878 1771 Output Total 1100 1580 Balance -222 191 PT 26.1 SEC (12.0-15.0) H 10/03/16 04:00 INR 2.37 (0.83-1.16) H 10/03/16 04:00 Physical Exam - Physical Exam General Appearance: alert, no apparent distress, other (confused) EENT: PERRL/EOMI Neck: supple Respiratory: lungs clear, normal breath sounds, other (PPM site clean and dry), No respiratory distress, No wheezing Cardiac/Chest: regular rate, rhythm (paced), No edema Abdomen: non-tender, soft, No distended Skin: normal color, warm/dry Lymphatic: no adenopathy Extremities: No pedal edema Neuro/Psych: alert, normal mood/affect, cognition abnormalities ICD10 Worksheet Patient Problems: Problems Problem Status Onset Symptomatic bradycardia Acute A-fib Acute Hematoma of neck Acute
--- NOTE | 2016-10-03 14:48 | HOSPPROG ---
Hospitalist Progress Note Assessment/Plan: * Afib with SSS - symptomatic bradycardia -s/p PCM -resume warfarin * Metabolic encephalopathy - agitated delirium -IV Precedex gtt - off -qhs and prn zyprexa - improving * MG with chronic PEG -Mestinon * Dysphagia s/p PEG -pulled out PEG - replaced by GI * CAD/stent * Thrombocytopenia - watch post procedure * Dementia * Urinary retention - now with pereira -start Flomax Subjective: Pereira placed last night after mulitple straight cath for urinary retention. Mental status improving, crakcing jokes Objective: Vital Signs Temp Pulse Resp BP Pulse Ox 36.3 C 64 19 119/51 L 94 10/03/16 12:00 10/03/16 12:00 10/03/16 12:00 10/03/16 12:00 10/03/16 12:00 Laboratory Results 10/03/16 04:00 10/03/16 04:00 10/02/16 10/03/16 10/04/16 05:59 05:59 05:59 Intake Total 878 1771 Output Total 1100 1580 Balance -222 191 PT 26.1 SEC (12.0-15.0) H 10/03/16 04:00 INR 2.37 (0.83-1.16) H 10/03/16 04:00 - Physical Exam Constitutional: no apparent distress, appears nourished, not in pain Respiratory: no respiratory distress, no rales or rhonchi, clear to auscultation Gastrointestinal: normoactive bowel sounds, soft, non-tender abdomen, no palpable masses Skin: no rashes or abrasions, no fluctuance, no induration Neurologic: No AAOx3 Psychiatric: encephalopathic, poor insight, poor judgement, poor memory, No interacting appropriately, No agitated ICD10 Worksheet Patient Problems: Problems Problem Status Onset Symptomatic bradycardia Acute A-fib Acute Hematoma of neck Acute
[2016-10-03 16:04] LABS: COLOR AMBER; LEUKOCYTE ESTERASE,URINE 1+ (NEGATIVE); NITRITE,URINE NEGATIVE (NEGATIVE)
[2016-10-03 16:07] LABS: BACTERIA 1+ /hpf (NONE SEEN); MUCUS 4+ /lpf (NONE-1+); RBC,URINE 50-182 /hpf (0-3); WBC,URINE 15-25 /hpf (0-3)
[2016-10-03] MEDS: TAMSULOSIN HCL 0.4 MG CAP PO SCH (17:42)
[2016-10-03] MEDS: PRAVASTATIN SODIUM 20 MG TAB TUBE SCH (21:20)
[2016-10-03] MEDS: MIRTAZAPINE 15 MG TAB TUBE SCH (21:20)
[2016-10-03] MEDS: OLANZapine 2.5 MG TAB PO SCH (21:20)
[2016-10-03] MEDS: guaiFENesin 200 MG/10 ML UDL TUBE PRN (21:27)
[2016-10-03] MEDS ORDERED: SCOPOLAMINE HYDROBROMIDE 1.5 MG PATCH TD SCH (22:15)
[2016-10-04] MEDS ORDERED: GLYCOPYRROLATE 0.2 MG/1 ML VIAL IVP ONE (01:52)
[2016-10-04 02:16] LABS: BASE EXCESS -1.9 mEq/L (-2.5-2.5); BICARBONATE 24 mEq/L (22-26); MEASURED OXYGEN SATURATION 91 % (92-95); PCO2 45 mmHg (34-38); PO2 65 mmHg (65-75); TCO2 25 mEq/L (23-27)
[2016-10-04 04:15] LABS: % IMMATURE GRANULYOCYTES 0.3 % (0.0-1.1); ABSOLUTE IMMATURE GRANULOCYTES 0.02 10^3/uL (0.00-0.10); ADD DIFF? NO; ADD MORPH? NO; ADD SCAN? NO; ATYPICAL LYMPHOCYTE FLAG 0 (0-99); FRAGMENT RBC FLAG 0 (0-99); HEMATOCRIT 43.3 % (40.0-51.0); HEMOGLOBIN 13.7 g/dL (13.7-17.5); LEFT SHIFT FLG 10 (0-99); LIPEMIA HEMOLYSIS FLAG 80 (0-99); MEAN CELL HEMOGLOBIN 29.5 pg (27.9-34.1); MEAN CELL HEMOGLOBIN CONCENTR. 31.6 g/dL (32.4-36.7); MEAN CELL VOLUME 93.1 fL (81.5-99.8); MEAN PLATELET VOLUME 12.2 fL (8.7-11.7); PLATELET CLUMPS FLAG 0 (0-99); PLATELET COUNT 83 10^3/uL (150-400); RED BLOOD CELL COUNT 4.65 10^6/uL (4.40-6.38); RED CELL DISTRIBUTION WIDTH 14.5 % (11.5-15.2)
[2016-10-04 04:24] LABS: INR 2.32 (0.83-1.16); PROTIME(PATIENT) 25.7 SEC (12.0-15.0)
[2016-10-04] MEDS: PYRIDOSTIGMINE BROMIDE 60 MG TAB TUBE SCH ×4 (05:04→20:41)
[2016-10-04] MEDS: LEVOTHYROXINE 100 MCG TAB TUBE SCH (05:04)
[2016-10-04 05:15] LABS: ANION GAP 9 mEq/L (8-16); CALCIUM 9.1 mg/dL (8.5-10.4); CARBON DIOXIDE 28 mEq/l (22-31); CHLORIDE 107 mEq/L (97-110); CREATININE 0.8 mg/dL (0.7-1.3); GLOMERULAR FILTRATION RATE > 60; GLUCOSE 163 mg/dL (70-100); POTASSIUM 3.7 mEq/L (3.5-5.2); SODIUM 144 mEq/L (134-144)
--- NOTE | 2016-10-04 08:24 | HOSPPROG ---
Hospitalist Progress Note Assessment/Plan: #Bradycardia: s/p PPM #ICU delirium: avoid central-acting medications. Stop scopolamine #Myasthenia gravis: PEG tube, tube feeds #Urinary retention: scopolamine stopped. UA with some whites, culture pending #Hypothyroidism: LT4 #Chronic pancytopenia: stable #Atrial fibrillation: INR therapeutic #Diet: NPO with dysphagie. Cont TF #DVT ppx: coumadin #Disp: hemodynamically stable, can transfer to floor Subjective: no pain Objective: Vital Signs Temp Pulse Resp BP Pulse Ox 37.7 C 68 24 H 134/46 H 85 L 10/04/16 04:00 10/04/16 06:00 10/04/16 06:45 10/04/16 04:00 10/04/16 06:45 Laboratory Results 10/04/16 04:00 10/04/16 04:00 10/03/16 10/04/16 10/05/16 05:59 05:59 05:59 Intake Total 1771 2130 Output Total 1580 750 Balance 191 1380 PT 25.7 SEC (12.0-15.0) H 10/04/16 04:00 INR 2.32 (0.83-1.16) H 10/04/16 04:00 - Physical Exam Constitutional: no apparent distress, chronically ill appearing Eyes: PERRL Ears, Nose, Mouth, Throat: dry mucous membranes Cardiovascular: regular rate and rhythym, other (pacer site dressed, C/D/I) Respiratory: no respiratory distress Gastrointestinal: normoactive bowel sounds, other (G-tube in place) Genitourinary: no bladder fullness, pereira in urethra Neurologic: CN II-XII Intact Psychiatric: encephalopathic ICD10 Worksheet Patient Problems: Problems Problem Status Onset Symptomatic bradycardia Acute A-fib Acute Hematoma of neck Acute
[2016-10-04] MEDS: MEMANTINE HCL 5 MG TAB TUBE SCH ×2 (09:14→20:40)
[2016-10-04] MEDS: FAMOTIDINE 20 MG TAB TUBE SCH ×2 (09:14→20:40)
[2016-10-04] MEDS: FERROUS SULFATE 300 MG/5 ML UD CUP TUBE SCH ×2 (09:14→20:39)
[2016-10-04] MEDS: WARFARIN SODIUM 5 MG TAB PO SCH (09:15)
[2016-10-04] MEDS: TAMSULOSIN HCL 0.4 MG CAP PO SCH (09:16)
[2016-10-04] MEDS: IPRATROPIUM HFA INHALER IH SCH (09:18)
[2016-10-04] MEDS: FLUTICASONE/SALMETER 250/50MCG DISKUS IH SCH ×2 (09:18→20:02)
--- NOTE | 2016-10-04 11:47 | PDINTPN ---
Tool Filer Progress Note Assessment/Plan: Assessment: 86 M with chronic myasthenia gravis on Mestinon as well as atrial fibrillation admitted after found to have a HR in the 20's on routine followup in Cards clinic. He underwent pacemaker placement without direct complication but had post-procedure delerium and pulled out his chronic PEG. This was replaced by GI yesterday and he was treated briefly with a Precedex drip. * Bradycardia- curently stable post PPM placement. Discussed with cardiology and will followup as outpatient. * Delerium- Less fidgeting today, but still disoriented. * asthma- stable on advair, atrovent. Minimal oxygen needs, atelectasis and mild pulmonary edema could contribute. * Urinary retention Plan: Activity as tolerated. Stop Scopalomine, which could contribute to delirium and urinary retention. Probably can go to floor 10/04/16 14:09 Subjective: Denies pain, dyspnea. Walked earlier today. Objective: Vital Signs Temp Pulse Resp BP Pulse Ox 37.7 C 64 22 H 124/36 H 94 10/04/16 04:00 10/04/16 09:18 10/04/16 09:18 10/04/16 08:00 10/04/16 09:18 Laboratory Results 10/04/16 04:00 10/04/16 04:00 10/03/16 10/04/16 10/05/16 05:59 05:59 05:59 Intake Total 1771 2130 Output Total 1580 750 Balance 191 1380 PT 25.7 SEC (12.0-15.0) H 10/04/16 04:00 INR 2.32 (0.83-1.16) H 10/04/16 04:00 CXR: Decreased interstitial markings bases. Images reviewed. Physical Exam - Physical Exam General Appearance: alert, no apparent distress EENT: normal ENT inspection Neck: normal inspection Respiratory: lungs clear, normal breath sounds Cardiac/Chest: regular rate, rhythm, No edema Abdomen: normal bowel sounds, non-tender, soft Skin: warm/dry Extremities: normal inspection Neuro/Psych: alert, motor weakness, cognition abnormalities, No oriented x 3 ICD10 Worksheet Patient Problems: Problems Problem Status Onset Symptomatic bradycardia Acute A-fib Acute Hematoma of neck Acute
--- NOTE | 2016-10-04 15:19 | SOAPPROG ---
FATOU Progress Note Assessment/Plan: Assessment: 1. Coronary artery disease 2. Dyslipidemia new line 3. Sick sinus syndrome 4. Permanent pacemaker 5. Dementia Patient is tolerating procedure well. There is some drainage at the top side of the dressing. This just significantly changed today. Has no fevers chills cough lightheadedness dizziness syncope or chest pain. He has tolerated his procedure quite well so far. If he develops any further acute issues that we can help with please let us know otherwise we will follow from a distance. We are available any time to help further Plan: 10/04/16 15:19 Subjective: He has no new complaints. Denies chest pain chest tightness jaw pain arm pain He denies cough fever chills Objective: Vital Signs Temp Pulse Resp BP Pulse Ox 37.7 C 64 22 H 124/36 H 94 10/04/16 04:00 10/04/16 09:18 10/04/16 09:18 10/04/16 08:00 10/04/16 09:18 Laboratory Results 10/04/16 04:00 10/04/16 04:00 10/03/16 10/04/16 10/05/16 05:59 05:59 05:59 Intake Total 1771 2130 Output Total 1580 750 Balance 191 1380 PT 25.7 SEC (12.0-15.0) H 10/04/16 04:00 INR 2.32 (0.83-1.16) H 10/04/16 04:00 Physical Exam - Physical Exam General Appearance: alert Neck: full range of motion Respiratory: rhonchi, No decreased breath sounds Cardiac/Chest: regular rate, rhythm, systolic murmur Abdomen: non-tender (Artery mat I am very his would see her list of wall), soft , No organomegaly Back: No CVA tenderness Skin: warm/dry Extremities: No calf tenderness Neuro/Psych: No oriented x 3 ICD10 Worksheet Patient Problems: Problems Problem Status Onset Symptomatic bradycardia Acute A-fib Acute Hematoma of neck Acute
[2016-10-04] MEDS ORDERED: OLANZapine 2.5 MG TAB TUBE PRN (15:38)
[2016-10-04] MEDS: PRAVASTATIN SODIUM 20 MG TAB TUBE SCH (20:40)
[2016-10-04] MEDS: MIRTAZAPINE 15 MG TAB TUBE SCH (20:40)
[2016-10-04] MEDS: OLANZapine 2.5 MG TAB TUBE SCH (20:40)
[2016-10-05 05:07] LABS: INR 2.5 (0.83-1.16); PROTIME(PATIENT) 27.3 SEC (12.0-15.0)
[2016-10-05 05:13] LABS: ANION GAP 8 mEq/L (8-16); CALCIUM 8.7 mg/dL (8.5-10.4); CARBON DIOXIDE 27 mEq/l (22-31); CHLORIDE 106 mEq/L (97-110); CREATININE 0.9 mg/dL (0.7-1.3); GLOMERULAR FILTRATION RATE > 60; GLUCOSE 122 mg/dL (70-100); POTASSIUM 3.7 mEq/L (3.5-5.2); SODIUM 141 mEq/L (134-144)
[2016-10-05] MEDS: PYRIDOSTIGMINE BROMIDE 60 MG TAB TUBE SCH ×4 (05:40→22:52)
[2016-10-05] MEDS: LEVOTHYROXINE 100 MCG TAB TUBE SCH (05:40)
[2016-10-05] MEDS: MEMANTINE HCL 5 MG TAB TUBE SCH ×2 (08:27→22:52)
[2016-10-05] MEDS: FERROUS SULFATE 300 MG/5 ML UD CUP TUBE SCH ×2 (08:28→22:50)
[2016-10-05] MEDS: FAMOTIDINE 20 MG TAB TUBE SCH ×2 (08:28→22:51)
[2016-10-05] MEDS: WARFARIN SODIUM 7.5 MG TAB TUBE SCH (08:31)
[2016-10-05] MEDS: FLUTICASONE/SALMETER 250/50MCG DISKUS IH SCH ×2 (09:11→20:50)
[2016-10-05] MEDS: IPRATROPIUM HFA INHALER IH SCH (09:11)
--- NOTE | 2016-10-05 11:51 | HOSPPROG ---
Hospitalist Progress Note Assessment/Plan: #Bradycardia: s/p PPM 10/01 #ICU delirium: not improving. avoid central-acting medications. Stop scopolamine. Zyprexa qhs, as needed. Has had more cognitive decline over past 6 months #Myasthenia gravis: PEG tube, tube feeds. G tube replaced 10/02 #Urinary retention: scopolamine stopped. UA with some whites, culture pending #Hypothyroidism: LT4 #Chronic pancytopenia: stable #Atrial fibrillation: INR therapeutic #Diet: NPO with dysphagia. Cont TF #DVT ppx: coumadin #Disp: hemodynamically stable, can transfer to floor #Goals: spoke with daughter, Autumn. Per baseline, he was doing tube feeds and meds on his own prior to this admit. More mental deterioration over past months. Goal is to take him home, but not possible with only there. Discussed hospice at SNF. Palliative care meeting tomorrow with ([place]), daughters. Now DNR. Time spent on visit 60 min: 15 min bedside examining/reviewing labs. 45 min on phone with daughter and in regards to hospice, treatment plan. Subjective: no acute events Objective: Vital Signs Temp Pulse Resp BP Pulse Ox 36.6 C 87 16 119/61 93 10/05/16 07:47 10/05/16 09:11 10/05/16 09:11 10/05/16 07:47 10/05/16 09:11 Laboratory Results 10/04/16 04:00 10/05/16 04:03 10/04/16 10/05/16 10/06/16 05:59 05:59 05:59 Intake Total 2130 2680 860 Output Total 750 450 0 Balance 1380 2230 860 PT 27.3 SEC (12.0-15.0) H 10/05/16 04:03 INR 2.50 (0.83-1.16) H 10/05/16 04:03 - Physical Exam Constitutional: other (sitting in chair. Roller belt ) Eyes: PERRL Ears, Nose, Mouth, Throat: moist mucous membranes, hard of hearing, No hearing normal Cardiovascular: regular rate and rhythym, other (pacemaker dressed with small amount drainage. No hematoma) Respiratory: no respiratory distress Gastrointestinal: other (G-tube in place) Genitourinary: pereira in urethra Skin: warm Musculoskeletal: generalized weakness Psychiatric: encephalopathic ICD10 Worksheet Patient Problems: Problems Problem Status Onset Symptomatic bradycardia Acute A-fib Acute Hematoma of neck Acute
[2016-10-05] MEDS: OLANZapine 2.5 MG TAB TUBE SCH (22:51)
[2016-10-05] MEDS: PRAVASTATIN SODIUM 20 MG TAB TUBE SCH (22:51)
[2016-10-05] MEDS: MIRTAZAPINE 15 MG TAB TUBE SCH (22:52)
[2016-10-06 06:08] LABS: INR 2.53 (0.83-1.16); PROTIME(PATIENT) 27.5 SEC (12.0-15.0)
[2016-10-06 06:18] LABS: ANION GAP 8 mEq/L (8-16); CALCIUM 8.7 mg/dL (8.5-10.4); CARBON DIOXIDE 28 mEq/l (22-31); CHLORIDE 103 mEq/L (97-110); CREATININE 0.8 mg/dL (0.7-1.3); GLOMERULAR FILTRATION RATE > 60; GLUCOSE 148 mg/dL (70-100); POTASSIUM 3.5 mEq/L (3.5-5.2); SODIUM 139 mEq/L (134-144)
[2016-10-06] MEDS: LEVOTHYROXINE 100 MCG TAB TUBE SCH (06:19)
[2016-10-06] MEDS: PYRIDOSTIGMINE BROMIDE 60 MG TAB TUBE SCH ×4 (06:19→20:02)
[2016-10-06] MEDS: FLUTICASONE/SALMETER 250/50MCG DISKUS IH SCH ×2 (09:07→20:26)
[2016-10-06] MEDS: IPRATROPIUM HFA INHALER IH SCH (09:08)
[2016-10-06] MEDS: FERROUS SULFATE 300 MG/5 ML UD CUP TUBE SCH ×2 (10:09→20:02)
[2016-10-06] MEDS: WARFARIN SODIUM 7.5 MG TAB TUBE SCH (10:11)
[2016-10-06] MEDS: MEMANTINE HCL 5 MG TAB TUBE SCH ×2 (10:11→20:02)
[2016-10-06] MEDS: FAMOTIDINE 20 MG TAB TUBE SCH ×2 (10:11→20:02)
[2016-10-06] MEDS: ACETAMINOPHEN 325 MG TAB TUBE PRN (14:18)
[2016-10-06] MEDS ORDERED: POTASSIUM CL 20 MEQ TAB TUBE ONE (14:41)
[2016-10-06] MEDS ORDERED: POTASSIUM CL 20 MEQ TAB TUBE SCH (14:45)
--- NOTE | 2016-10-06 15:25 | PDCARPN ---
Cardiology Progress Note Assessment/Plan: Assessment: SSS/Bradycardia/Sinus arrest pauses up to 2 seconds: Seen in clinic with HR 28. To ER for PPM by Bird Cobb MD 10/01/16. Indication for PPM as above. Symptomatic. Placed L SC site. He was not on any meds to lower HR. He was in Permanent A Fib. Regularization of A Fib post implant consistent with high A-V Block. Device check this morning with normal function. Tele shows Paced rhythm. - 61. BP good today 128/60. Pacer site intact with dressing in place. [place] size area of serosanguineous fluid. No bleeding, or ecchymosis at site. Mild swelling. 1 view portable CXR ordered for today. Has not been done at this time. Dementia: Post procedure confused. To ICU for monitoring. He is sedated with Precedex drip. Will call out. Responded to commands. Confusion / Dementia monitored and managed by Hospitalist. Plan: Continue monitoring on Telemetry while hospitalized. 10/02/16 11:56 10/06/16 15:15 We are asked to check the pacemaker site. It has bled small amount, and the dressing was changed early afternoon with minimal blood saturation at this time. The left chest site is ecchymotic into the axillary area. It appears to be resolving, not fresh bruising. His INR is therapeutic at 2.4. He can have ice-pack to area, or should it bleed more, place a pressure dressing. RN reported that his steri-strips were well adhering, and site well approximated. No further recommendations at this time. He had a brief run of SVT this morning. No recent episodes. Continue to monitor on telemetry. Call if further concerns. Reviewed/Discussed With: hospitalist, multidisciplinary team Time Spent With Patient: 10 minutes. Objective: Vital Signs (8 Hrs) Temp Pulse Resp BP Pulse Ox 10/06/16 11:52 35.8 C L 65 18 143/88 H 89 L 10/06/16 09:10 82 18 142/74 H 92 10/06/16 08:00 37.6 C 65 16 142/74 H 89 L Intake/Output (24 Hrs) 10/05/16 10/06/16 10/07/16 05:59 05:59 05:59 Intake Total 2680 2680 Output Total 450 420 Balance 2230 2260 Intake: Tube Feeding (ml) 1500 1500 Tube Flush (ml) 1180 1180 Output: Urine (ml) 450 420 Catheter 450 420 PEG Tube Output (ml) 0 PEG 0 Other: Number of Stools Bedside Commode 1 Catheter 1 Toilet 1 Urinal 1 Result Diagrams: 10/04/16 04:00 10/06/16 04:11 - Physical Exam Constitutional: no apparent distress Cardiovascular: regular rate and rhythm (paced rhythm) Respiratory: other (regular breathing w/ no distress) Skin: warm Psychiatric: cooperative, other (mild confusion- Difficulty following commands) ICD10 Worksheet Patient Problems: Problems Problem Status Onset Symptomatic bradycardia Acute A-fib Acute Hematoma of neck Acute
[2016-10-06] MEDS ORDERED: POTASSIUM CL 20 MEQ/15 ML UDCUP TUBE ONE (15:45)
--- NOTE | 2016-10-06 16:49 | HOSPPROG ---
Hospitalist Progress Note Assessment/Plan: #Bradycardia: s/p PPM 10/01. Bruising over pacer and right arm. Appreciate Cards eval. #SVT: a run this AM. Lytes at goal. Cont tele #ICU delirium: not improving. avoid central-acting medications. Zyprexa qhs #Myasthenia gravis: PEG tube, tube feeds. G tube replaced 10/02 #Urinary retention: scopolamine stopped. UA with some whites, culture pending #Hypothyroidism: LT4 #Chronic pancytopenia: stable #Atrial fibrillation: INR therapeutic #Diet: NPO with dysphagia. Cont TF #DVT ppx: coumadin #Disp: hemodynamically stable, can transfer to floor #Goals: spoke with daughter, Autumn. Per baseline, he was doing tube feeds and meds on his own prior to this admit. More mental deterioration over past months. Plan for palliative care meeting tomorrow Subjective: SVT this morning Objective: Vital Signs Temp Pulse Resp BP Pulse Ox 36.4 C 69 16 143/68 H 91 L 10/06/16 15:50 10/06/16 15:50 10/06/16 15:50 10/06/16 15:50 10/06/16 15:50 Microbiology 10/03/16 16:05 Urine Culture - Final Urine,Clean Catch Laboratory Results 10/04/16 04:00 10/06/16 04:11 10/05/16 10/06/16 10/07/16 05:59 05:59 05:59 Intake Total 2680 2680 Output Total 450 420 Balance 2230 2260 PT 27.5 SEC (12.0-15.0) H 10/06/16 04:11 INR 2.53 (0.83-1.16) H 10/06/16 04:11 - Physical Exam Constitutional: chronically ill appearing Eyes: PERRL Ears, Nose, Mouth, Throat: moist mucous membranes, hard of hearing Cardiovascular: regular rate and rhythym, other (pacer site with surrounding bruising that extends over shoulder and arm. No TTP) Respiratory: no respiratory distress, no rales or rhonchi Gastrointestinal: normoactive bowel sounds Skin: warm Musculoskeletal: full muscle strength Neurologic: CN II-XII Intact Psychiatric: encephalopathic ICD10 Worksheet Patient Problems: Problems Problem Status Onset Symptomatic bradycardia Acute A-fib Acute Hematoma of neck Acute
[2016-10-06] MEDS: MIRTAZAPINE 15 MG TAB TUBE SCH (20:02)
[2016-10-06] MEDS: PRAVASTATIN SODIUM 20 MG TAB TUBE SCH (20:02)
[2016-10-06] MEDS: OLANZapine 2.5 MG TAB TUBE SCH (20:02)
[2016-10-07 04:09] LABS: INR 2.23 (0.83-1.16); PROTIME(PATIENT) 24.9 SEC (12.0-15.0)
[2016-10-07 04:20] LABS: ANION GAP 4 mEq/L (8-16); CARBON DIOXIDE 25 mEq/l (22-31); CHLORIDE 108 mEq/L (97-110); CREATININE 0.7 mg/dL (0.7-1.3); GLOMERULAR FILTRATION RATE > 60; GLUCOSE 134 mg/dL (70-100); POTASSIUM 3.8 mEq/L (3.5-5.2); SODIUM 137 mEq/L (134-144)
[2016-10-07] MEDS: LEVOTHYROXINE 100 MCG TAB TUBE SCH (05:33)
[2016-10-07] MEDS: PYRIDOSTIGMINE BROMIDE 60 MG TAB TUBE SCH ×4 (05:33→21:16)
[2016-10-07] MEDS: MEMANTINE HCL 5 MG TAB TUBE SCH ×2 (08:44→21:16)
[2016-10-07] MEDS: FAMOTIDINE 20 MG TAB TUBE SCH ×2 (08:44→21:16)
[2016-10-07] MEDS: FERROUS SULFATE 300 MG/5 ML UD CUP TUBE SCH ×2 (08:44→21:16)
[2016-10-07] MEDS: WARFARIN SODIUM 7.5 MG TAB TUBE SCH (08:44)
[2016-10-07] MEDS: FLUTICASONE/SALMETER 250/50MCG DISKUS IH SCH ×2 (11:29→20:14)
[2016-10-07] MEDS: IPRATROPIUM HFA INHALER IH SCH (11:30)
--- NOTE | 2016-10-07 16:05 | HOSPPROG ---
Hospitalist Progress Note Assessment/Plan: Assessment: 86-year-old male presents with sick sinus syndrome and symptomatic bradycardia requiring permanent pacemaker placement complicated by acute encephalopathy, supraventricular tachycardia Plan: #Bradycardia: symptomatic, s/p PPM 10/01, ongoing bruising, applying pressure and ice pack necessary #SVT: ongoing intermittent runs, none reported overnight, electrolytes currently at goal #Acute encephalopathy: evidenced by global brain dysfunction characterized as confusion, disorientation, disorganized thought process, all of which is an acute change from patient's baseline which was previously well functioning prior to this hospitalization, secondary to the toxic effects of sedating medications received for pacemaker placement, impaired sleep patterns while in intensive care unit -Zyprexa at bedtime -counseled patient and daughter that this will most likely improve the further out he is from his surgery as well as intensive care unit stay -attempt to regulate sleep better while at [facility] facility #Myasthenia gravis: PEG tube, tube feeds. G tube replaced 10/02 #Urinary retention: most likely secondary to scopolamine patch, removed -recommend trial void tomorrow a.m. and replace if unable #Hypothyroidism: LT4 #Chronic pancytopenia: stable #Atrial fibrillation: with sick sinus syndrome resulting in bradycardia requiring intervention, currently on Coumadin with therapeutic INR #Diet: NPO with dysphagia. Cont TF #DVT ppx: coumadin #Code: appreciate Palliative Care consultation today, MOST form completed, DNR #Disp: [facility] facility tomorrow if no complicating arrhythmias overnight Subjective: patient is comfortable but completely disoriented, counseled patient 's daughter regarding anticipated recovery time, need to engage in physical therapy Objective: Vital Signs Temp Pulse Resp BP Pulse Ox 36.5 C 64 17 127/59 H 93 10/07/16 11:58 10/07/16 11:58 10/07/16 11:58 10/07/16 11:58 10/07/16 11:58 Laboratory Results 10/04/16 04:00 10/07/16 03:28 10/06/16 10/07/16 10/08/16 05:59 05:59 05:59 Intake Total 2680 250 1720 Output Total 420 1175 Balance 2260 -925 1720 PT 24.9 SEC (12.0-15.0) H 10/07/16 03:28 INR 2.23 (0.83-1.16) H 10/07/16 03:28 - Time Spent With Patient Time Spent with Patient: greater than 35 minutes Time Spent with Patient: Greater than 35 minutes spent on this patients care, greater than 50% of time spent counseling, educating, and coordinating care regarding the above mentioned plan. - Physical Exam Constitutional: no apparent distress, not in pain Cardiovascular: regular rate and rhythym, No irregularly irregular, No tachycardia, No edema Respiratory: no respiratory distress, no rales or rhonchi, clear to auscultation Gastrointestinal: normoactive bowel sounds, soft, non-tender abdomen, no palpable masses Genitourinary: other ( Romero catheter in place, dark urine) Skin: other ( no erythema around the pacemaker site) Neurologic: sensation intact bilaterally, other ( alert awake oriented x2 to person and date not to place), No weakness ( motor strength 5/5 bilateral lower extremities) Psychiatric: not anxious, encephalopathic, other ( non linear speech non linear thought process) ICD10 Worksheet Patient Problems: Problems Problem Status Onset A-fib Acute Hematoma of neck Acute Symptomatic bradycardia Acute
--- NOTE | 2016-10-07 16:41 | PDPCPN ---
Palliative Care Progress Note Assessment/Plan: Referring provider: Dr Sousa Reason for consult: Complex medical decision making Symptom control HPI: Haider Meza (Bill) is a 86 yo male with PMH mysthenia gravis, dysphagia s/p PEG tube and a fib admitted to the hospital for bradycardia at cardiology office. Admitted to the hospital for pacemaker placement. Hosptialization complicated by acute confusion, urinary retention, and weakness. Palliative care consulted for complex medical decision making. Met with Yanet, and 3 daughters outside of the room. Family shared how Kelechi has always bounced back from each hospitalization but never back to 100% of his baseline. They feel like each hospitalization gets longer and harder for his mental status to come back to normal. They have seen some improvement in his cognition over the past 2 days but still far below his baseline. Previously he was mostly independent living with his at home. We discussed the course of delirium is unknown and due to his cognition and safety he will likely need SNF rehab at discharge before going home with his elderly . Also discussed goals of care and future needs. His family does not feel he would want continued hospitalizations just to prolong his life, especially if his cognition is continually effected. Filled out a MOST form for DNR/DNI. Assessment: Physical: - Pain: occasional pacemaker incision - tylenol PRN - weakness: - PT/OT for support - plan for SNF rehab at discharge - dysphagia: - on PEG tube feedings- previously independent with use. Emotional/psychological: Acute encephalopathy: on zyprexa scheduled at night. - maintain normal routines with normal wake/sleep cycle Advanced Care Planning: Is patient decisional?: No Code Status: DNR/DNI POA: Yanet is MDPOA. Plan: [facility] at discharge. Family has talked about possibility of needing assisted living afterwards depending on how he does. 10/07/16 16:42 Subjective: I'm feeling ok Objective: Social History: to Yanet for 60 years. 3 daughters all involved. Enjoyed golfing now enjoys being social. Medication list reviewed ROS: General: fatigue, weakness ENT: dysphagia Resp: cough GI: poor appetite, PEG tube for nutrition : retention MS: negative Skin: negative Neuro: negative Psych: hallucinations Functional assessment: PPS: 40% Functional status:dependent on ADLs, IADLs Vital Signs Temp Pulse Resp BP Pulse Ox 36.4 C 75 18 133/64 H 92 10/07/16 16:00 10/07/16 16:00 10/07/16 16:00 10/07/16 16:00 10/07/16 16:00 Laboratory Results 10/04/16 04:00 10/07/16 03:28 10/06/16 10/07/16 10/08/16 05:59 05:59 05:59 Intake Total 2680 250 1720 Output Total 420 1175 Balance 2260 -925 1720 PT 24.9 SEC (12.0-15.0) H 10/07/16 03:28 INR 2.23 (0.83-1.16) H 10/07/16 03:28 Physical Exam - Physical Exam General Appearance: alert, no apparent distress Respiratory: No accessory muscle use, No decreased breath sounds Skin: normal color, warm/dry Extremities: No pedal edema Neuro/Psych: alert, disoriented to place, disoriented to time ICD10 Worksheet Patient Problems: Problems Problem Status Onset Palliative care encounter Acute Symptomatic bradycardia Acute A-fib Acute Hematoma of neck Acute - ICD10 Problem Qualifiers (1) Palliative care encounter
[2016-10-07] MEDS: OLANZapine 2.5 MG TAB TUBE SCH (21:16)
[2016-10-07] MEDS: MIRTAZAPINE 15 MG TAB TUBE SCH (21:16)
[2016-10-07] MEDS: PRAVASTATIN SODIUM 20 MG TAB TUBE SCH (21:16)
[2016-10-08 04:01] LABS: % IMMATURE GRANULYOCYTES 0.6 % (0.0-1.1); ABSOLUTE IMMATURE GRANULOCYTES 0.03 10^3/uL (0.00-0.10); ADD DIFF? NO; ADD MORPH? NO; ADD SCAN? NO; ATYPICAL LYMPHOCYTE FLAG 0 (0-99); FRAGMENT RBC FLAG 0 (0-99); HEMATOCRIT 37.7 % (40.0-51.0); HEMOGLOBIN 12.2 g/dL (13.7-17.5); LEFT SHIFT FLG 0 (0-99); LIPEMIA HEMOLYSIS FLAG 80 (0-99); MEAN CELL HEMOGLOBIN 29.5 pg (27.9-34.1); MEAN CELL HEMOGLOBIN CONCENTR. 32.4 g/dL (32.4-36.7); MEAN CELL VOLUME 91.1 fL (81.5-99.8); MEAN PLATELET VOLUME 12.4 fL (8.7-11.7); PLATELET CLUMPS FLAG 20 (0-99); PLATELET COUNT 99 10^3/uL (150-400); RED BLOOD CELL COUNT 4.14 10^6/uL (4.40-6.38)
[2016-10-08 04:10] LABS: INR 1.94 (0.83-1.16); PROTIME(PATIENT) 22.3 SEC (12.0-15.0)
[2016-10-08 04:12] LABS: ANION GAP 7 mEq/L (8-16); CARBON DIOXIDE 25 mEq/l (22-31); CHLORIDE 105 mEq/L (97-110); CREATININE 0.8 mg/dL (0.7-1.3); GLOMERULAR FILTRATION RATE > 60; GLUCOSE 116 mg/dL (70-100); POTASSIUM 3.7 mEq/L (3.5-5.2); SODIUM 137 mEq/L (134-144)
[2016-10-08] MEDS: PYRIDOSTIGMINE BROMIDE 60 MG TAB TUBE SCH ×4 (05:53→20:09)
[2016-10-08] MEDS: guaiFENesin 200 MG/10 ML UDL TUBE PRN (05:53)
[2016-10-08] MEDS: LEVOTHYROXINE 100 MCG TAB TUBE SCH (05:53)
[2016-10-08] MEDS: IPRATROPIUM HFA INHALER IH SCH (08:36)
[2016-10-08] MEDS ORDERED: WARFARIN SODIUM 5 MG TAB TUBE ONE (08:37)
[2016-10-08] MEDS: FLUTICASONE/SALMETER 250/50MCG DISKUS IH SCH ×2 (08:37→20:34)
[2016-10-08] MEDS: FAMOTIDINE 20 MG TAB TUBE SCH ×2 (10:01→20:09)
[2016-10-08] MEDS: FERROUS SULFATE 300 MG/5 ML UD CUP TUBE SCH ×2 (10:01→20:07)
[2016-10-08] MEDS: MEMANTINE HCL 5 MG TAB TUBE SCH ×2 (10:01→20:09)
--- NOTE | 2016-10-08 13:27 | PDIAF ---
- Diagnosis Diagnosis: Sick Sinus Syndrome w/ Bradycardia requiring PPM c/b acute encephalopathy Code Status: Do Not Resuscitate - Medication Management Discharge Medications: Medications to Continue on Transfer Albuterol Sulfate [Proair Hfa] 1 - 2 gm IH Q4-6PRN PRN 09/30/16 [Last Taken ] Fluticasone Nasal [Flonase Nasal [place]] 1 sprays NASAL DAILY PRN 09/30/16 [Last Taken 09/29/16] Fluticasone/Salmeter 250/50Mcg [Advair 250/50 (*)] 1 puffs IH BID 09/30/16 [ Last Taken 09/29/16] Ipratropium [Atrovent Hfa (*)] 1 puffs IH DAILY 09/30/16 [Last Taken 09/29/16] Levothyroxine Sodium 100 mcg PO DAILY 09/30/16 [Last Taken 09/29/16] Pyridostigmine [place] 60 mg PO QID 09/30/16 [Last Taken 09/29/16] Acetaminophen [Tylenol 325mg (*)] 650 mg TUBE Q4HRS PRN #0 tab 10/08/16 [Last Taken Unknown] Cyanocobalamin [Vitamin B12 (*)] 1,000 mcg TUBE DAILY #0 10/08/16 [Last Taken 09/29/16] Famotidine [Pepcid 20 MG (*)] 20 mg TUBE BID #0 10/08/16 [Last Taken 09/29/16] Ferrous Sulfate [Ferrous Sulf 325 MG (*)] 325 mg TUBE BID #0 10/08/16 [Last Taken 09/29/16] Memantine HCl 10 mg TUBE BID #0 10/08/16 [Last Taken 09/29/16] Mirtazapine [Remeron] 15 mg TUBE HS #0 10/08/16 [Last Taken 09/29/16] OLANZapine [ZyPREXA 2.5 mg (*)] 2.5 mg TUBE Q6 PRN #0 tab 10/08/16 [Last Taken Unknown] Simvastatin 10 mg TUBE HS #0 10/08/16 [Last Taken 09/29/16] Warfarin Sodium [Coumadin 5MG (*)] 7.5 mg TUBE DAILY #0 10/08/16 [Last Taken ] guaiFENesin [Guaifenesin] 400 mg TUBE BID PRN #0 10/08/16 [Last Taken 09/29/16] [employer] Antibiotics: NA Discharge Medications: Refer to the Discharge Home Medication list for PRN reason. PICC Care - Routine: N/A - Orders Services needed: Registered Nurse, Certified Managing Principal, Physical Therapy, Occupational Therapy, Speech Language Pathologist (Cognitive therapy) Oxygen: NA Diet Recommendation: other (NPO with Jevity 1.5 tube feeds and 1L per day of free water via PEG (split in 250ml q6hr boluses)) Tube feeding: Jevity 1.5 tube feeds and 1L per day of free water via PEG (split in 250ml Weigh Patient: weekly Romero: No Wound Care Instructions: Pacemaker precautions post PPM for four weeks: No raising left arm above shoulder level or lifting pushing, pulling greater than 10 pounds for 4 weeks. Keep dressing in place for one week. OK to replace pressure dressing if soiled. Avoid showering the area for one week. OK to shower lower body. Cover PM area with clear wrap and tape secure to prevent getting wet. Sutures/Mario Alberto Site: Wound check and removal of sutures or mario ablerto in one week. Activity/Weight Bearing Restrictions: As tolerates w/ assist Additional: Please schedule device check at [facility] next week, then with Dr. Cobb in 3 weeks. Please schedule outpatient Palliative Care consult/ reassessment to determine goals of care if mental status not improving - Labs/Radiology PT/INR Date: 10/11/16 - Follow Up Care Current Providers and Referrals: NONE *PRIMARY CARE P,. [Unknown] - Bird Cobb MD [Medical Doctor] - (Call for appt October 09 for pacemaker site check)
--- NOTE | 2016-10-08 16:30 | HOSPPROG ---
Hospitalist Progress Note Assessment/Plan: Assessment: 86-year-old male presents with sick sinus syndrome and symptomatic bradycardia requiring permanent pacemaker placement complicated by acute encephalopathy, supraventricular tachycardia Plan: #Bradycardia: symptomatic, s/p PPM 10/01, ongoing bruising, applying pressure and ice pack as necessary #SVT: ongoing intermittent runs, none reported overnight, electrolytes currently at goal #Acute encephalopathy: worsening today s/p agitation overnight, requiring zyprexa -evidenced by global brain dysfunction characterized as confusion, disorientation, disorganized thought process, all of which is an acute change from patient's baseline which was previously well functioning prior to this hospitalization, secondary to the toxic effects of sedating medications received for pacemaker placement, impaired sleep patterns while in intensive care unit -Zyprexa at bedtime and prn -attempt to regulate [facility] better [facility] at [facility] -get HCT to ensure no bleed #Myasthenia gravis: PEG tube, tube feeds. G tube replaced 10/02 #Urinary retention: most likely secondary to scopolamine patch, removed -successful trial void #Hypothyroidism: LT4 #Chronic pancytopenia: stable #Atrial fibrillation: with sick sinus syndrome resulting in bradycardia requiring intervention, currently on Coumadin -give 10mg today -repeat INR tomorrow #Diet: NPO with dysphagia. Cont TF #DVT ppx: coumadin #Code: appreciate Palliative Care consultation today, MOST form completed, DNR #Disp: prison facility tomorrow if mental status improves Subjective: Patient with significant agitation overnight, sleeping most of today Objective: Vital Signs Temp Pulse Resp BP Pulse Ox 36.3 C 77 30 H 119/104 H 92 10/08/16 11:59 10/08/16 11:59 10/08/16 11:59 10/08/16 11:59 10/08/16 11:59 Laboratory Results 10/08/16 03:18 10/08/16 03:18 10/07/16 10/08/16 10/09/16 05:59 05:59 05:59 Intake Total 250 2780 1720 Output Total 1175 1500 Balance -925 1280 1720 PT 22.3 SEC (12.0-15.0) H 10/08/16 03:18 INR 1.94 (0.83-1.16) H 10/08/16 03:18 - Pending Discharge Pending Discharge Within 24 Hours: Yes Pending Discharge Date: 10/09/16 Pending Discharge Time: 11:00 - Physical Exam Constitutional: no apparent distress, not in pain, chronically ill appearing, No uncomfortable Cardiovascular: regular rate and rhythym, no murmur, rub, or gallop, No irregularly irregular, No edema Respiratory: no respiratory distress, no rales or rhonchi, clear to auscultation Gastrointestinal: normoactive bowel sounds, soft, non-tender abdomen, no palpable masses Genitourinary: no bladder fullness, no bladder tenderness, no renal bruits Neurologic: other (Alert awake oriented times person only), No weakness (Motor strength 5/5 bilateral reception), No facial droop Psychiatric: not anxious, encephalopathic, flat affect, poor insight, poor judgement, poor memory, other (Somnolent but arousable to voice), No agitated ICD10 Worksheet Patient Problems: Problems Problem Status Onset A-fib Acute Hematoma of neck Acute Symptomatic bradycardia Acute Palliative care encounter Acute
[2016-10-08] MEDS: OLANZapine 2.5 MG TAB TUBE SCH (20:07)
[2016-10-08] MEDS: PRAVASTATIN SODIUM 20 MG TAB TUBE SCH (20:09)
[2016-10-08] MEDS: ACETAMINOPHEN 325 MG TAB TUBE PRN (20:09)
[2016-10-08] MEDS: MIRTAZAPINE 15 MG TAB TUBE SCH (20:09)
[2016-10-09 04:21] LABS: % IMMATURE GRANULYOCYTES 0.2 % (0.0-1.1); ABSOLUTE IMMATURE GRANULOCYTES 0.01 10^3/uL (0.00-0.10); ADD DIFF? NO; ADD MORPH? NO; ADD SCAN? NO; ATYPICAL LYMPHOCYTE FLAG 10 (0-99); FRAGMENT RBC FLAG 0 (0-99); HEMATOCRIT 34.2 % (40.0-51.0); HEMOGLOBIN 11.3 g/dL (13.7-17.5); LEFT SHIFT FLG 0 (0-99); LIPEMIA HEMOLYSIS FLAG 80 (0-99); MEAN CELL HEMOGLOBIN 29.9 pg (27.9-34.1); MEAN CELL VOLUME 90.5 fL (81.5-99.8); PLATELET CLUMPS FLAG 0 (0-99); PLATELET COUNT 103 10^3/uL (150-400); RED BLOOD CELL COUNT 3.78 10^6/uL (4.40-6.38); RED CELL DISTRIBUTION WIDTH 13.9 % (11.5-15.2)
[2016-10-09 04:28] LABS: PROTIME(PATIENT) 22.8 SEC (12.0-15.0)
[2016-10-09 04:36] LABS: ANION GAP 6 mEq/L (8-16); CALCIUM 8.6 mg/dL (8.5-10.4); CARBON DIOXIDE 25 mEq/l (22-31); CHLORIDE 104 mEq/L (97-110); CREATININE 0.8 mg/dL (0.7-1.3); GLOMERULAR FILTRATION RATE > 60; GLUCOSE 123 mg/dL (70-100); POTASSIUM 3.7 mEq/L (3.5-5.2); SODIUM 135 mEq/L (134-144)
[2016-10-09] MEDS: LEVOTHYROXINE 100 MCG TAB TUBE SCH (05:18)
[2016-10-09] MEDS: PYRIDOSTIGMINE BROMIDE 60 MG TAB TUBE SCH ×2 (05:18→11:55)
[2016-10-09] MEDS: MEMANTINE HCL 5 MG TAB TUBE SCH (08:56)
[2016-10-09] MEDS: FERROUS SULFATE 300 MG/5 ML UD CUP TUBE SCH (08:56)
[2016-10-09] MEDS: FAMOTIDINE 20 MG TAB TUBE SCH (08:56)
[2016-10-09] MEDS: FLUTICASONE/SALMETER 250/50MCG DISKUS IH SCH (10:35)
[2016-10-09] MEDS: IPRATROPIUM HFA INHALER IH SCH (10:35)
[2016-10-09 12:35] VITALS: PULSE 76; RESP 17; O2SAT 90
--- NOTE | 2016-10-09 12:59 | PDIAF ---
- Diagnosis Diagnosis: Sick Sinus Syndrome w/ Bradycardia requiring PPM c/b acute encephalopathy Code Status: Do Not Resuscitate - Medication Management Discharge Medications: Medications to Continue on Transfer Albuterol Sulfate [Proair Hfa] 1 - 2 gm IH Q4-6PRN PRN 09/30/16 [Last Taken ] Fluticasone Nasal [Flonase Nasal [place]] 1 sprays NASAL DAILY PRN 09/30/16 [Last Taken 09/29/16] Fluticasone/Salmeter 250/50Mcg [Advair 250/50 (*)] 1 puffs IH BID 09/30/16 [ Last Taken 09/29/16] Ipratropium [Atrovent Hfa (*)] 1 puffs IH DAILY 09/30/16 [Last Taken 09/29/16] Levothyroxine Sodium 100 mcg PO DAILY 09/30/16 [Last Taken 09/29/16] Pyridostigmine [place] 60 mg PO QID 09/30/16 [Last Taken 09/29/16] Acetaminophen [Tylenol 325mg (*)] 650 mg TUBE Q4HRS PRN #0 tab 10/08/16 [Last Taken Unknown] Cyanocobalamin [Vitamin B12 (*)] 1,000 mcg TUBE DAILY #0 10/08/16 [Last Taken 09/29/16] Famotidine [Pepcid 20 MG (*)] 20 mg TUBE BID #0 10/08/16 [Last Taken 09/29/16] Ferrous Sulfate [Ferrous Sulf 325 MG (*)] 325 mg TUBE BID #0 10/08/16 [Last Taken 09/29/16] Memantine HCl 10 mg TUBE BID #0 10/08/16 [Last Taken 09/29/16] Mirtazapine [Remeron] 15 mg TUBE HS #0 10/08/16 [Last Taken 09/29/16] OLANZapine [ZyPREXA 2.5 mg (*)] 2.5 mg TUBE Q6 PRN #0 tab 10/08/16 [Last Taken Unknown] Simvastatin 10 mg TUBE HS #0 10/08/16 [Last Taken 09/29/16] Warfarin Sodium [Coumadin 5MG (*)] 7.5 mg TUBE DAILY #0 10/08/16 [Last Taken ] guaiFENesin [Guaifenesin] 400 mg TUBE BID PRN #0 10/08/16 [Last Taken 09/29/16] Warfarin Sodium [Coumadin 7.5MG (*)] 7.5 mg PO DAILY AT 4PM tab 10/09/16 [Last Taken Unknown] [employer] Tax[employer] Antibiotics: NA Discharge Medications: Refer to the Discharge Home Medication list for PRN reason. PICC Care - Routine: N/A - Orders Services needed: Registered Nurse, Certified Marketing Account Manager, Physical Therapy, Occupational Therapy, Speech Language Pathologist (Cognitive therapy) Oxygen: NA Diet Recommendation: other (NPO with Jevity 1.5 tube feeds and 1.5L per day of free water via PEG (split in 500ml q8hr boluses)) Tube feeding: Jevity 1.5 tube feeds and 1.5L/day divided over 3 bolues evenly Weigh Patient: weekly Romero: No Wound Care Instructions: Pacemaker precautions post PPM for four weeks: No raising left arm above shoulder level or lifting pushing, pulling greater than 10 pounds for 4 weeks. Keep dressing in place for one week. OK to replace pressure dressing if soiled. Avoid showering the area for one week. OK to shower lower body. Cover PM area with clear wrap and tape secure to prevent getting wet. Sutures/Mario Alberto Site: Wound check and removal of sutures or mario alberto in one week. Activity/Weight Bearing Restrictions: As tolerates w/ assist Additional: Please schedule outpatient Palliative Care consult/reassessment to determine goals of care if mental status not improving - Labs/Radiology PT/INR Date: 10/11/16 - Follow Up Care Current Providers and Referrals: NONE *PRIMARY CARE P,. [Unknown] - Corey [place] MD [Medical Doctor] - (wound care check/pacer check October 12 @1245 in [facility] [place] appointment @3pm in [place])
[2016-10-09 13:00] VITALS: BP 106/53; TEMP 97.9
--- NOTE | 2016-10-09 13:06 | PDDCSUM ---
Discharge Summary Discharge Summary: DISCHARGE SUMMARY FOLLOW-UP ITEMS: Outpatient palliative care consultation if clinical status not improving DATE OF ADMISSION: 09/30/2016 DATE OF DISCHARGE: 10/09/2016 DISCHARGE DIAGNOSES: 1. Sick sinus syndrome with symptomatic bradycardia 2. Supraventricular tachycardia 3. Acute encephalopathy 4. Chronic myasthenia gravis 5. Acute urinary retention 6. Chronic pancytopenia CONSULTATIONS: Cardiology PROCEDURES / IMAGING: Permanent pacemaker placed on 10/01/[address] Cobb CHIEF COMPLAINT: Acute weakness SUBJECTIVE: Patient is feeling well at time of discharge, he remains exceptionally confused and disoriented PHYSICAL EXAM ON DISCHARGE: Systolic blood pressure is 110-140, heart rate 60 to 70, afebrile overnight, satting well on room air, alert awake oriented times person only, pleasant and cooperative, recognition is 3/3 comma inspiration clear to auscultation bilaterally, no erythema at the pacemaker site LABS ON DISCHARGE: Creatinine 0.8 potassium 3.7 INR 2.0 white blood cell count 4500 hemoglobin 11.3 HOSPITAL COURSE BY PROBLEM: 1. Sick sinus syndrome. Patient has a history of atrial fibrillation and developed sick sinus syndrome with symptomatic bradycardia requiring permanent pacemaker placement on 10/01. Patient is subsequently not on any rebecca blocking agents and he is maintaining heart rate between 60 and 80. Is on Coumadin for CVA prevention. His INR is therapeutic at time of discharge. He will have routine follow-up in [facility], instructions in inner agency form. 2. Supraventricular tachycardia. Patient had some ongoing intermittent runs post procedure early but has not had any for the past 48 hours prior to discharge. He does not currently require a rebecca blocking agent. 3. Chronic myasthenia gravis. Patient has had a PEG tube placed he is currently receiving tube feeds and we have been increasing his free water flushes to maintain good urine output. 4. Acute encephalopathy. Patient's hospital course was extended secondary to acute encephalopathy characterized as confusion, disorientation, disorganized thought process, resulting in global brain dysfunction all of which is an acute change from his baseline which was previously well functioning. Most likely cause is the toxic effect of medications received for his pacemaker placement and impaired sleep patterns in the intensive care unit. He has been receiving scheduled Zyprexa at night in addition to his scheduled mirtazapine. Also has as needed Zyprexa which has been administered occasionally for patient's safety. We did have a head CT performed which demonstrated no evidence of bleeding. We are attempting to improve his sleep-wake cycle and engaging with physical therapy during the day hours. At this time it is appropriate for him to go to a nursing home facility as it will most likely take him a while to recover completely. He did have a palliative consultation and it was decided by the family that they would like an outpatient palliative re-consultation to reassess whether he has improving cognitively in a meaningful way. 5. Acute urinary retention. This is most likely secondary to his scopolamine patch which was removed patient has successfully trial void. DISCHARGE MEDICATIONS: Please see official discharge medication reconciliation sheet in chart , warfarin 7.5 mg daily continue all other home medications. DISCHARGE INSTRUCTIONS: Please arrange outpatient palliative care consultation. TIME SPENT: Greater than 30 minutes were spent on direct patient care, as well as discharge planning and preparation.
[2016-10-09] MEDS ORDERED: WARFARIN SODIUM 7.5 MG TAB PO SCH (16:00)
== END 2016-10-09 14:32 | DRG 242 ==
LOC: CED 15:21 → CEDHOLD 15:50 → F2W 17:42 → F2N 10-01 17:08 → F2W 10-04 18:05
PROVIDERS: ADMIT Hospitalist; ATTEND Hospitalist
PROC: 02HK3JZ Insertion of Pacemaker Lead into Right Ventricle, Percutaneous Approach (ICD-10-PCS; principal; 2016-10-01)
PROC: 0JH635Z Insertion of Pacemaker, Single Chamber Rate Responsive into Chest Subcutaneous Tissue and Fascia, Percutaneous Approach (ICD-10-PCS; principal; 2016-10-01)
PROC: 0T9B70Z Drainage of Bladder with Drainage Device, Via Natural or Artificial Opening (ICD-10-PCS; 2016-10-02)
PROC: 0DH63UZ Insertion of Feeding Device into Stomach, Percutaneous Approach (ICD-10-PCS; 2016-10-02)
DX: I49.5 Sick sinus syndrome (principal); G93.41 Metabolic encephalopathy; R33.0 Drug induced retention of urine; T44.3X5A Adverse effect of other parasympatholytics [anticholinergics and antimuscarinics] and spasmolytics, initial encounter; R13.10 Dysphagia, unspecified; D61.818 Other pancytopenia; I48.2 Chronic atrial fibrillation; I25.10 Atherosclerotic heart disease of native coronary artery without angina pectoris; G70.00 Myasthenia gravis without (acute) exacerbation; F03.90 Unspecified dementia, unspecified severity, without behavioral disturbance, psychotic disturbance, mood disturbance, and anxiety; E11.9 Type 2 diabetes mellitus without complications; J45.909 Unspecified asthma, uncomplicated; I10 Essential (primary) hypertension; E78.5 Hyperlipidemia, unspecified; Z51.5 Encounter for palliative care; Z66 Do not resuscitate; Z95.5 Presence of coronary angioplasty implant and graft; Z79.01 Long term (current) use of anticoagulants
CPT/HCPCS: 71010-PO; 80048-PO; 82550-PO; 82553-PO; 82607-90; 83735-PO; 83880-PO; 84484-PO; 85025-PO; 85610-PO; 85730-PO; 97116-GP; 97162-GP; 97166-GO; 97530-GO; 97530-GP; 97535-GO; C1786; C1898; G8978-GP-CL; G8979-GP-CJ; G8987-GO-CL; G8988-GO-CK; J0690; J1940; J2250; J3010; P9017